=== PATIENT | female | born 1940 | race Caucasian/White ===

== ENCOUNTER → 2021-04-06 | Outpatient (CLI) | payer MEDICARE ==
--- NOTE | 2021-04-06 14:47 | Diagnostic Imaging Report ---
Indication: Low back pain. TIME OF EXAM: 2:31 PM 3 views lumbar spine show normal curvature and alignment. Vertebral body heights are maintained. No acute compression fracture seen. There is some generalized degenerative disc disease with variable disc space narrowing and marginal spurring. There is lower lumbar facet arthropathy. Atherosclerotic calcifications in the abdominal aorta are noted. IMPRESSION: Number spondylosis. No acute bony abnormality is detected. Dictated by: Dictated on workstation # [id number]
== END ==
LOC: RAD FS 14:20
PROVIDERS: ATTEND Family Medicine
DX: M47.26 Other spondylosis with radiculopathy, lumbar region (principal)
CPT/HCPCS: 72100

== ENCOUNTER → 2021-04-20 | Outpatient (CLI) | payer MEDICARE ==
--- NOTE | 2021-04-20 16:46 | Diagnostic Imaging Report ---
PROCEDURE: MRI lumbar spine. TECHNIQUE: Multiplanar, multisequence MRI of the lumbar spine was performed without contrast. INDICATION: Back pain with radiculopathy. FINDINGS: There is minimal anterolisthesis of L5 on S1. The alignment of the lumbosacral spine is normal. Body heights are well maintained. Marrow signal is normal. The conus medullaris and cauda equina are normal. L1-L2: Disc shows normal contour. No facet or ligamentous hypertrophy. L2-L3: Desiccation of the disc with some loss of disc space height. There is broad-based disc protrusion with facet and ligamentous hypertrophy causing moderate encroachment upon the foramen bilaterally. No central canal stenosis. L3-L4: There is broad-based disc bulge with moderate facet and ligamentous hypertrophy causing moderate bilateral foraminal encroachment without central stenosis. L4-L5: There is desiccation of the disc with minimal disc bulge. There is considerable facet and ligamentous hypertrophy causing moderate trefoil stenosis and encroachment upon the lateral recesses. The residual AP central canal dimension is approximately 6 mm. L5-S1: Minimal anterolisthesis of L5 on S1 with very mild disc bulge. Mild facet and ligamentous hypertrophy causing mild foraminal encroachment bilaterally without central canal stenosis. The paraspinal soft tissues appear normal. IMPRESSION: 1. Multilevel degenerative disc and facet disease causing [id number] encroachment as described above. Dictated by: Dictated on workstation # [id number]
== END ==
LOC: RAD 13:15
PROVIDERS: ATTEND Family Medicine
DX: M47.26 Other spondylosis with radiculopathy, lumbar region (principal); M47.817 Spondylosis without myelopathy or radiculopathy, lumbosacral region; M51.16 Intervertebral disc disorders with radiculopathy, lumbar region; M51.27 Other intervertebral disc displacement, lumbosacral region; M48.061 Spinal stenosis, lumbar region without neurogenic claudication; M48.07 Spinal stenosis, lumbosacral region; M43.17 Spondylolisthesis, lumbosacral region
CPT/HCPCS: 72148

== ENCOUNTER 2022-06-29 15:23 | Observation (INO) | payer MEDICARE ==
[~2022-06-29] VITALS: Ht 160 cm; Wt 73.0 kg
[2022-06-29] VITALS (8 sets, daily range): BP systolic 134–159; BP diastolic 59–90
--- NOTE | 2022-06-29 15:32 | ED Neurological Problem ---
General Stated Complaint: VISION DISTURBANCE/RIGHT HAND WEAKNESS History of Present Illness Date Seen by Provider: Jun 29, 2022 Time Seen by Provider: 15:31 Initial Comments 75-year-old female with PMH of DM 2/HTN/chronic UTIs/urinary incontinence, is here with complaints of right upper extremity weakness which occurred earlier today. Patient's symptoms have resolved since then but she is not feeling well. Patient cannot explain how she feels except to say that she does not feel well and has been having shortness of breath which is worsened on exertion, and worsening over the past week and a half. Patient noticed that she had urinary retention today. Patient also complains that she has had left upper extremity weakness for the past week and a half, and it is not a result of any injuries or falls. Denies headache, blurry vision, chest pain, palpitations, abdominal pain, fever and chills. Allergies and Home Medications Allergies Coded Allergies: No Known Drug Allergies (Unverified , 06/29/22) Patient Home Medication List Home Medication List Reviewed: Yes Review of Systems Review of Systems Constitutional: no symptoms reported Eyes: No Symptoms Reported Ears, Nose, Mouth, Throat: no symptoms reported Respiratory: no symptoms reported Cardiovascular: no symptoms reported Gastrointestinal: no symptoms reported Genitourinary: see HPI Musculoskeletal: no symptoms reported Skin: no symptoms reported Psychiatric/Neurological: See HPI, Numbness, Weakness Endocrine: No Symptoms Reported Hematologic/Lymphatic: No Symptoms Reported Physical Exam Vital Signs Vital Signs - First Documented 06/29/22 15:30 Temp 36.5 Pulse 93 Resp 21 B/P (MAP) 200/90 (126) Pulse Ox 96 O2 Delivery Room Air Capillary Refill : Height, Weight, BMI Height: '" Weight: lbs. oz. kg; BMI Method: General Appearance: WD/WN, no apparent distress HEENT: PERRL/EOMI Neck: non-tender, full range of motion, supple, normal inspection Respiratory: lungs clear, normal breath sounds Cardiovascular: regular rate, rhythm, no edema Gastrointestinal: normal bowel sounds, non tender, soft Back: normal inspection, no CVA tenderness, no vertebral tenderness Extremities: normal range of motion, non-tender, normal inspection, no pedal edema, no calf tenderness Neurologic/Psychiatric: district engineer II-XII nml as tested, no motor/sensory deficits, alert, normal mood/affect, oriented x 3 Crainal Nerves: normal hearing, normal speech, PERRL Coordination/Gait: normal finger to nose, normal gait Motor/Sensory: no motor deficit, no sensory deficit, no pronator drift, negative Babinski's sign Reflexes: 4+ Bicep (R), 4+ Bicep (L), 4+ Tricep (L), 4+ Knee (R), 4+ Knee (L), 4+ Ankle (R), 4+ Ankle (L) Skin: normal color Lymphatic: no adenopathy Stroke NIH Stroke Scale Assessment Select: Initial Level of Consciousness: 0=Alert (0), Level of Consciousness-Questions: 0=Answers both month/age (0), LOC Commands: 0=Performs both tasks (0), Visual Paul: 0=No visual loss (0), Facial Movement (Facial Paresis): 0=Normal symmetrical mnt (0), Motor Function-Arms Right: 0=No drift (0), Motor Function-Arms Left: 0=No drift (0), Motor Function-Legs Right: 0=No drift (0), Motor Function-Legs Left: 0=No drift (0), Limb Ataxia: 0=Absent (0), Sensory: 0=Normal:no loss (0), Best Language: 0=No aphasia (0), Dysarthria: 0=Normal (0), Extinction & Inattention: 0=No abnormality (0), Total: 0 Focused Exam Lactate Level 06/29/22 15:50: Lactic Acid Level 0.93 Lactic Acid Level Laboratory Tests Test 06/29/22 15:50 Lactic Acid Level 0.93 MMOL/L (0.50-2.00) Progress/Results/Core Measures Results/Orders Lab Results Laboratory Tests Test 06/29/22 15:35 06/29/22 15:36 06/29/22 15:50 06/29/22 16:00 Range/Units White Blood Count 24.1 H 4.3-11.0 10^3/uL Red Blood Count 4.37 3.80-5.11 10^6/uL Hemoglobin 12.3 11.5-16.0 g/dL Hematocrit 37 35-52 % Mean Corpuscular Volume 86 80-99 fL Mean Corpuscular Hemoglobin 28 25-34 pg Mean Corpuscular Hemoglobin Concent 33 32-36 g/dL Red Cell Distribution Width 14.9 H 10.0-14.5 % Platelet Count 62 L 130-400 10^3/uL Mean Platelet Volume 10.3 9.0-12.2 fL Immature Granulocyte % (Auto) 2 % Neutrophils (%) (Auto) 5 L 42-75 % Lymphocytes (%) (Auto) 48 H 12-44 % Monocytes (%) (Auto) 44 H 0-12 % Eosinophils (%) (Auto) 0 0-10 % Basophils (%) (Auto) 0 0-10 % Neutrophils # (Auto) 1.3 L 1.8-7.8 10^3/uL Lymphocytes # (Auto) 11.6 H 1.0-4.0 10^3/uL Monocytes # (Auto) 10.7 H 0.0-1.0 10^3/uL Eosinophils # (Auto) 0.0 0.0-0.3 10^3/uL Basophils # (Auto) 0.1 0.0-0.1 10^3/uL Immature Granulocyte # (Auto) 0.5 H 0.0-0.1 10^3/uL Neutrophils % (Manual) 4 % Lymphocytes % (Manual) 70 % Monocytes % (Manual) 15 % Eosinophils % (Manual) 0 % Basophils % (Manual) 1 % Metamyelocytes % 1 % Band Neutrophils 1 % Nucleated Red Blood Cells 1 Atypical Lymphocytes 8 % Prothrombin Time 14.7 12.2-14.7 SEC INR Comment 1.1 0.8-1.4 Activated Partial Thromboplast Time 28 24-35 SEC D-Dimer > 20.00 H 0.00-0.49 UG/ML Sodium Level 141 135-145 MMOL/L Potassium Level 3.4 L 3.6-5.0 MMOL/L Chloride Level 102 98-107 MMOL/L Carbon Dioxide Level 23 21-32 MMOL/L Anion Gap 16 H 5-14 MMOL/L Blood Urea Nitrogen 24 H 7-18 MG/DL Creatinine 1.27 0.60-1.30 MG/DL Estimat Glomerular Filtration Rate 43 BUN/Creatinine Ratio 19 Glucose Level 152 H 70-105 MG/DL Calcium Level 9.5 8.5-10.1 MG/DL Corrected Calcium 9.1 8.5-10.1 MG/DL Magnesium Level 1.7 1.6-2.4 MG/DL Total Bilirubin 0.3 0.1-1.0 MG/DL Aspartate Amino Transf (AST/SGOT) 22 5-34 U/L Alanine Aminotransferase (ALT/SGPT) 12 0-55 U/L Alkaline Phosphatase 82 40-136 U/L Troponin I 0.72 *H <0.30 NG/ML Total Protein 7.8 6.4-8.2 GM/DL Albumin 4.5 3.2-4.5 GM/DL Glucometer 140 H 70-110 MG/DL Lactic Acid Level 0.93 0.50-2.00 MMOL/L Influenza Type A (RT-PCR) Not Detected Not Detecte Influenza Type B (RT-PCR) Not Detected Not Detecte SARS-CoV-2 RNA (RT-PCR) Not Detected Not Detecte Test 06/29/22 17:05 06/29/22 17:55 Range/Units Urine Color YELLOW Urine Clarity SL CLOUDY Urine pH 5.5 5-9 Urine Specific Grabill 1.010 L 1.016-1.022 Urine Protein 1+ H NEGATIVE Urine Glucose (UA) NEGATIVE NEGATIVE Urine Ketones NEGATIVE NEGATIVE Urine Nitrite POSITIVE H NEGATIVE Urine Bilirubin NEGATIVE NEGATIVE Urine Urobilinogen 0.2 < = 1.0 MG/DL Urine Leukocyte Esterase TRACE H NEGATIVE Urine RBC (Auto) 1+ H NEGATIVE Urine RBC NONE /HPF Urine WBC 2-5 /HPF Urine Squamous Epithelial Cells 5-10 /HPF Urine Crystals NONE /LPF Urine Bacteria MODERATE H /HPF Urine Casts NONE /LPF Urine Mucus NEGATIVE /LPF Urine Culture Indicated YES Troponin I 1.04 *H <0.30 NG/ML My Orders Orders - ALENA PEÑA MD Ct Head Wo-R/O Stroke (06/29/22 15:32) Chest 1 View Ap/Pa Only (06/29/22 15:33) Cbc With Automated Diff (06/29/22 15:40) Comprehensive Metabolic Panel (06/29/22 15:40) Fibrin Degradation Products (06/29/22 15:40) Lactic Acid Analyzer (06/29/22 15:40) Magnesium (06/29/22 15:40) Protime With Inr (06/29/22 15:40) Partial Thromboplastin Time (06/29/22 15:40) Ua Culture If Indicated (06/29/22 15:40) Troponin I Fs (06/29/22 15:40) Covid 19 Inhouse Test (06/29/22 15:42) Influenza A And B By Pcr (06/29/22 15:42) Manual Differential (06/29/22 15:35) Continuous Ekg Monitoring (06/29/22 16:12) Ekg Tracing (06/29/22 16:12) Ct Angio Head/Neck (06/29/22 16:13) Iohexol Injection (Omnipaque 350 Mg/Ml 1 (06/29/22 16:45) Received Contrast (Hold Metformin- Contr (06/29/22 16:45) Ns (Ivpb) (Sodium Chloride 0.9% Ivpb Bag (06/29/22 16:45) Ct Angio Chest W (06/29/22 17:04) Troponin I Fs (06/29/22 17:05) Ekg Tracing (06/29/22 17:05) Iohexol Injection (Omnipaque 350 Mg/Ml 1 (06/29/22 17:15) Received Contrast (Hold Metformin- Contr (06/29/22 17:15) Ns (Ivpb) (Sodium Chloride 0.9% Ivpb Bag (06/29/22 17:15) Ed Iv/Invasive Line Start (06/29/22 17:22) Ns Iv 1000 Ml (Sodium Chloride 0.9%) (06/29/22 17:30) Urine Culture (06/29/22 17:05) Ceftriaxone 1 Gm Pre-Mix (Rocephin 1 Gm (06/29/22 17:34) Heparin (Bolus Per Protocol) (Heparin (B (06/29/22 18:15) Enoxaparin Injection (Lovenox Injection) (06/29/22 18:12) Medications Given in ED Current Medications Medications Dose Ordered Sig/Lily Route Start Time Stop Time Status Last Admin Dose Admin Iohexol 100 ml ONCE ONCE IV 06/29/22 16:45 06/29/22 16:46 DC 06/29/22 16:53 75 ML Iohexol 100 ml ONCE ONCE IV 06/29/22 17:15 06/29/22 17:32 DC 06/29/22 17:42 80 ML Sodium Chloride 100 ml ONCE ONCE IV 06/29/22 16:45 06/29/22 16:46 DC 06/29/22 16:53 100 ML Sodium Chloride 100 ml ONCE ONCE IV 06/29/22 17:15 2/28/23 17:32 DC 06/29/22 17:41 100 ML Vital Signs/I&O 06/29/22 15:30 Temp 36.5 Pulse 93 Resp 21 B/P (MAP) 200/90 (126) Pulse Ox 96 O2 Delivery Room Air Progress Progress Note : Progress Note 1. STROKE RULE OUT: - CT HEAD: no acute findings - CTA HEAD & NECK: No acute findings - Labs: see chart and note -Symptoms likely due to UTI 2. BILATERAL PULMONARY EMBOLISM - Troponin: 0.72, 2nd tropis 1.04; likely due to PE and demand ischemia. Pt did not have chest pain at any time. - EKG x2: non-ischemic - Platelet count is 62, pt is not on any blood thinners at home - D-dimer: >20 - CTA CHEST: Bilateral pulmonary embolism -Patient's vitals are stable in the ER and she is satting at 97% on room air without any need for oxygen. -Discussed with hospitalist, Dr. Saleem, and accepted for observation admission to cardiac stepdown. Discussed anticoagulation and since platelet count is 62, will start patient on treatment dose of Lovenox 3. ACUTE CYSTITIS WITH HEMATURIA : - UA is positive for nitrites and leukocyte esterase and RBCs -WBC is elevated at 24 - Lactic Acid level was normal indicating normal tissue perfusion. -Ceftriaxone 1 g IV stat Initial ECG Impression Date: Jun 29, 2022 Initial ECG Impression Time: 16:15 Initial ECG Rate: 86 Initial ECG Rhythm: Normal Sinus Initial ECG Intervals: Normal Initial ECG Impression: Nonspecific Changes Diagnostic Imaging Diagonstic Imaging: CT Plain Films/CT/US/NM/MRI: chest, head Comments [facility], [place] NAME: KATIE CRUZ [facility] REC#: [id number] PT STATUS: REG ER : 1940 PHYSICIAN: ALENA PEÑA MD ADMIT DATE: 06/29/22/ER FS Draft Date of Exam:06/29/22 CT ANGIO HEAD/NECK PROCEDURE: CT angiography of the head and CT angiography of the neck with and without contrast. TECHNIQUE: Contiguous noncontrast images were obtained from the skull base through the vertex. After intravenous contrast administration, helical CT angiography of the neck was performed. Source data was reformatted into 3D MIP projections. Delayed post contrast acquisition was also obtained. Auto Exposure Controls were utilized during the CT exam to meet ALARA standards for radiation dose reduction. INDICATION: Right-sided weakness. CTA NECK: There is a three-vessel branching pattern to the aortic arch. The right and left common carotid arteries are widely patent. No focal stenosis is identified. Both carotid bifurcations are unremarkable and show no focal stenosis. The right and left internal carotid arteries appear to be widely patent. There is some calcified plaque at the carotid siphons bilaterally. The left vertebral artery is dominant. Both vertebral arteries are widely patent. CTA HEAD: The basilar artery is widely patent. The right posterior cerebral artery is hypoplastic consistent with origin. The right posterior communicating artery feeds the right ADVANCED MANUFACTURING TECHNICIAN. The left ADVANCED MANUFACTURING TECHNICIAN is widely patent. The right and left anterior cerebral arteries are widely patent. The M1 and M2 branches of the right and left middle cervical arteries appear to be widely patent. No thromboembolism is identified. No large vessel occlusion is detected. Note is made of multiple low-attenuation nodules throughout both lobes of the thyroid gland. IMPRESSION: 1. Essentially unremarkable CT angiogram of the head and neck. No thromboembolism or large vessel occlusion is identified. 2. Bilateral thyroid nodules. This could be evaluated with ultrasound on a nonemergent basis if not already performed. Dictated on workstation # [id number] Dict: 06/29/225 Trans: 06/29/221714 [facility] [id number] Interpreted by: JONNIE PAULA MD Electronically signed by: [facility] [place] NAME: KATIE CRUZ [facility] REC#: [id number] PT STATUS: REG ER : 1940 PHYSICIAN: ALENA PEÑA MD ADMIT DATE: 06/29/22/ER FS Draft Date of Exam:06/29/22 CT ANGIO CHEST W PROCEDURE: CT angiography of the chest with contrast. TECHNIQUE: Multiple contiguous axial images were obtained through the chest after uneventful bolus administration of intravenous contrast. 3D reconstructed CTA MIP acquisitions were also performed. Auto Exposure Controls were utilized during the CT exam to meet ALARA standards for radiation dose reduction. INDICATION: Elevated D-dimer. No prior studies are available for comparison. FINDINGS: Findings are positive for pulmonary emboli. There are some filling defects involving a right upper lobe lobar pulmonary arterial branch as well as right lower lobe lobar and segmental branches. There is a tiny filling defect in a left lower lobe segmental branch. Upper lobes are unremarkable. Overall clot burden is very small. No definite findings of right heart failure are detected. Thoracic aorta is normal in caliber. There is no dissection. There is no pericardial or pleural fluid identified. Lungs appear to be clear. No infiltrates are seen. There is no nodule or mass. The upper abdomen does show low-attenuation within the right lobe of the liver, suggestive of a cyst. IMPRESSION: 1. Findings consistent with bilateral pulmonary emboli. Overall clot burden is very small. There is no evidence of right heart failure. Dictated on workstation # [id number] Dict: 06/29/22 173 Trans: 06/29/221745 [id number] Interpreted by: JONNIE PAULA MD Electronically signed by: [facility] [place] [place] NAME: KATIE CRUZ [facility] REC#: [id number] PT STATUS: REG ER : 1940 PHYSICIAN: ALENA PEÑA MD ADMIT DATE: 06/29/22/ER FS Signed Date of Exam:06/29/22 CHEST 1 VIEW AP/PA ONLY INDICATION: Right upper extremity weakness COMPARISON: None available. TECHNIQUE: Single radiograph of the chest dated 06/23/2022. FINDINGS: The cardiac silhouette is within normal limits in size. No significant pulmonary vascular congestion. Senescent changes of the lungs without focal pulmonary opacity. No significant pleural effusion. No pneumothorax. No acute osseous abnormality. IMPRESSION: Senescent changes of the lungs without superimposed acute cardiopulmonary abnormality. Dictated by: Dictated on workstation # [id number] Dict: 06/29/22 1620 Trans: 06/29/221742 [facility] [id number] Interpreted by: DEREK AMAYA MD Electronically signed by: DEREK AMAYA MD 06/29/221742 [facility] [place] [place] NAME: KATIE CRUZ [facility] REC#: [id number] PT STATUS: REG ER : 1940 PHYSICIAN: ALENA PEÑA MD ADMIT DATE: 06/29/22/ER FS Draft Date of Exam:06/29/22 CT HEAD WO-R/O STROKE PROCEDURE: CT head wo r/o stroke. TECHNIQUE: Multiple contiguous axial images were obtained through the brain without the use of intravenous contrast. Auto Exposure Controls were utilized during the CT exam to meet ALARA standards for radiation dose reduction. INDICATION: Blurred vision and weakness. COMPARISON: No prior studies are available for comparison. FINDINGS: Ventricles and sulci are within normal limits. No sulcal effacement or midline shift is identified. No acute intra-axial or extra-axial hemorrhage is detected. Cisterns are patent. Visualized paranasal sinuses are clear. IMPRESSION: No acute intracranial process is detected. Results were discussed with Dr. Peña at 04:03 p.m. Dictated on workstation # [id number] Dict: 06/29/22 1601 Trans: 06/29/22 1605 [id number] [id number] Interpreted by: JONNIE PAULA MD Electronically signed by: Departure Communication (Admissions) Time/Spoke to Admitting Phy: 18:20 Discussed with hospitalist and accepted for admission to stepdown unit for observation Impression Primary Impression: Bilateral pulmonary embolism Additional Impression: Acute cystitis with hematuria Disposition: 30 STILL A PATIENT Condition: Stable Admissions Decision to Admit Reason: Admit from ER (General) Decision to Admit/Date: Jun 29, 2022 Time/Decision to Admit Time: 18:00 Transfer Method of Transfer: EMS Departure-Patient Inst. Referrals: BAILEY CONKLIN MD (PCP/Family) Primary Care Physician ALENA PEÑA MD Jun 29, 2022 15:32
[2022-06-29 15:46] LABS: BASOPHILS # (AUTO) 0.1 10^3/uL (0.0-0.1); BASOPHILS % (AUTO) 0 % (0-10); EOSINOPHILS % (AUTO) 0 % (0-10); HEMATOCRIT 37 % (35-52); HEMOGLOBIN 12.3 g/dL (11.5-16.0); LYMPHOCYTES # (AUTO) 11.6 10^3/uL (1.0-4.0); LYMPHOCYTES % (AUTO) 48 % (12-44); MEAN CORPUSCULAR HEMOGLOBIN 28 pg (25-34); MEAN CORPUSCULAR HGB CONC 33 g/dL (32-36); MEAN CORPUSCULAR VOLUME 86 fL (80-99); MEAN PLATELET VOLUME 10.3 fL (9.0-12.2); MONOCYTES # (AUTO) 10.7 10^3/uL (0.0-1.0); MONOCYTES % (AUTO) 44 % (0-12); NEUTROPHILS # (AUTO) 1.3 10^3/uL (1.8-7.8); NEUTROPHILS % (AUTO) 5 % (42-75); PLATELET COUNT 62 10^3/uL (130-400); WHITE BLOOD COUNT 24.1 10^3/uL (4.3-11.0)
--- NOTE | 2022-06-29 16:05 | Diagnostic Imaging Report ---
PROCEDURE: CT head wo r/o stroke. TECHNIQUE: Multiple contiguous axial images were obtained through the brain without the use of intravenous contrast. Auto Exposure Controls were utilized during the CT exam to meet ALARA standards for radiation dose reduction. INDICATION: Blurred vision and weakness. COMPARISON: No prior studies are available for comparison. FINDINGS: Ventricles and sulci are within normal limits. No sulcal effacement or midline shift is identified. No acute intra-axial or extra-axial hemorrhage is detected. Cisterns are patent. Visualized paranasal sinuses are clear. IMPRESSION: No acute intracranial process is detected. Results were discussed with Dr. Peña at 04:03 p.m. Dictated by: Dictated on workstation # [id number]
[2022-06-29 16:10] LABS: BILIRUBIN,TOTAL 0.3 MG/DL (0.1-1.0); CALCIUM 9.5 MG/DL (8.5-10.1); CREATININE SERUM 1.27 MG/DL (0.60-1.30); MAGNESIUM 1.7 MG/DL (1.6-2.4); POTASSIUM 3.4 MMOL/L (3.6-5.0)
[2022-06-29 16:12] LABS: ALBUMIN 4.5 GM/DL (3.2-4.5); TOTAL PROTEIN 7.8 GM/DL (6.4-8.2)
[2022-06-29 16:22] LABS: BAND NEUTROPHILS 1 %; BASOPHILS % (MANUAL) 1 %; EOSINOPHILS % (MANUAL) 0 %; LYMPHOCYTES % (MANUAL) 70 %; MONOCYTES % (MANUAL) 15 %; NEUTROPHILS % (MANUAL) 4 %
[2022-06-29 16:23] LABS: ATYPICAL LYMPHOCYTES 8 %; METAMYELOCYTES % 1 %; NUCLEATED RED BLOOD CELLS 1
--- NOTE | 2022-06-29 16:23 | Diagnostic Imaging Report ---
INDICATION: Right upper extremity weakness COMPARISON: None available. TECHNIQUE: Single radiograph of the chest dated 06/23/2022. FINDINGS: The cardiac silhouette is within normal limits in size. No significant pulmonary vascular congestion. Senescent changes of the lungs without focal pulmonary opacity. No significant pleural effusion. No pneumothorax. No acute osseous abnormality. IMPRESSION: Senescent changes of the lungs without superimposed acute cardiopulmonary abnormality. Dictated by: Dictated on workstation # [id number]
[2022-06-29 16:38] LABS: FIBRIN DEGRADATION PRODUCTS > 20.00 UG/ML (0.00-0.49); INR 1.1 (0.8-1.4); PARTIAL THROMBOPLASTIN TIME 28 SEC (24-35); PROTHROMBIN TIME PATIENT 14.7 SEC (12.2-14.7)
[2022-06-29] MEDS ORDERED: HOLD METFORMIN - RECEIVED CONTRAST 20 ML VIAL IV SCH ×2 (16:45→17:15)
[2022-06-29] MEDS ORDERED: NS 100 ML (IVPB) BAG IV ONE ×2 (16:45→17:15)
[2022-06-29] MEDS ORDERED: IOHEXOL 350 MG/ML 100 ML (OMNIPAQUE 350) VIAL IV ONE ×2 (16:45→17:15)
[2022-06-29 17:15] LABS: BILIRUBIN,URINE NEGATIVE (NEGATIVE); CLARITY,URINE SL CLOUDY; COLOR,URINE YELLOW; GLUCOSE, URINE (UA) NEGATIVE (NEGATIVE); KETONES,URINE NEGATIVE (NEGATIVE); LEUKOCYTE ESTERASE ,URINE TRACE (NEGATIVE); NITRITE,URINE POSITIVE (NEGATIVE); PH,URINE 5.5 (5-9); PROTEIN,URINE 1+ (NEGATIVE)
--- NOTE | 2022-06-29 17:16 | Diagnostic Imaging Report ---
PROCEDURE: CT angiography of the head and CT angiography of the neck with and without contrast. TECHNIQUE: Contiguous noncontrast images were obtained from the skull base through the vertex. After intravenous contrast administration, helical CT angiography of the neck was performed. Source data was reformatted into 3D MIP projections. Delayed post contrast acquisition was also obtained. Auto Exposure Controls were utilized during the CT exam to meet ALARA standards for radiation dose reduction. INDICATION: Right-sided weakness. CTA NECK: There is a three-vessel branching pattern to the aortic arch. The right and left common carotid arteries are widely patent. No focal stenosis is identified. Both carotid bifurcations are unremarkable and show no focal stenosis. The right and left internal carotid arteries appear to be widely patent. There is some calcified plaque at the carotid siphons bilaterally. The left vertebral artery is dominant. Both vertebral arteries are widely patent. CTA HEAD: The basilar artery is widely patent. The right posterior cerebral artery is hypoplastic consistent with origin. The right posterior communicating artery feeds the right GAS WELL PUMPER. The left GAS WELL PUMPER is widely patent. The right and left anterior cerebral arteries are widely patent. The M1 and M2 branches of the right and left middle cervical arteries appear to be widely patent. No thromboembolism is identified. No large vessel occlusion is detected. Note is made of multiple low-attenuation nodules throughout both lobes of the thyroid gland. IMPRESSION: 1. Essentially unremarkable CT angiogram of the head and neck. No thromboembolism or large vessel occlusion is identified. 2. Bilateral thyroid nodules. This could be evaluated with ultrasound on a nonemergent basis if not already performed. Dictated by: Dictated on workstation # [id number]
[2022-06-29 17:23] LABS: BACTERIA,URINE MODERATE /HPF
[2022-06-29] MEDS ORDERED: NS IV 1000 ML 1,000 ML IV SCH (17:30)
[2022-06-29] MEDS ORDERED: cefTRIAXone 1 GM PRE-MIX 50 ML IV STA (17:34)
--- NOTE | 2022-06-29 17:46 | Diagnostic Imaging Report ---
PROCEDURE: CT angiography of the chest with contrast. TECHNIQUE: Multiple contiguous axial images were obtained through the chest after uneventful bolus administration of intravenous contrast. 3D reconstructed CTA MIP acquisitions were also performed. Auto Exposure Controls were utilized during the CT exam to meet ALARA standards for radiation dose reduction. INDICATION: Elevated D-dimer. No prior studies are available for comparison. FINDINGS: Findings are positive for pulmonary emboli. There are some filling defects involving a right upper lobe lobar pulmonary arterial branch as well as right lower lobe lobar and segmental branches. There is a tiny filling defect in a left lower lobe segmental branch. Upper lobes are unremarkable. Overall clot burden is very small. No definite findings of right heart failure are detected. Thoracic aorta is normal in caliber. There is no dissection. There is no pericardial or pleural fluid identified. Lungs appear to be clear. No infiltrates are seen. There is no nodule or mass. The upper abdomen does show low-attenuation within the right lobe of the liver, suggestive of a cyst. IMPRESSION: 1. Findings consistent with bilateral pulmonary emboli. Overall clot burden is very small. There is no evidence of right heart failure. Dictated by: Dictated on workstation # [id number]
[2022-06-29] MEDS ORDERED: ENOXAPARIN 100 MG/1 ML (LOVENOX) SYR SC STA (18:12)
[2022-06-29] MEDS ORDERED: HEParin 1000 UNIT/ML (10ML VIAL) FOR BOLUS IV SCH (18:15)
[2022-06-29] MEDS ORDERED: ASPIRIN 325 MG (5 GR) TABLET PO ONE (20:45)
[2022-06-29] MEDS ORDERED: MELATONIN 3 MG TABLET PO PRN (22:00)
[2022-06-29] MEDS ORDERED: ACETAMINOPHEN 325 MG TABLET PO PRN (22:00)
[2022-06-29] MEDS: CATHETER FLUSH 10 ML SYR IVP SCH (22:41)
[2022-06-30] VITALS (7 sets, daily range): BP systolic 141–161; BP diastolic 72–89
[2022-06-30 04:54] LABS: BASOPHILS # (AUTO) 0.1 10^3/uL (0.0-0.1); BASOPHILS % (AUTO) 0 % (0-10); EOSINOPHILS % (AUTO) 0 % (0-10); HEMATOCRIT 36 % (35-52); HEMOGLOBIN 11.8 g/dL (11.5-16.0); MEAN CORPUSCULAR HEMOGLOBIN 28 pg (25-34); MEAN CORPUSCULAR HGB CONC 33 g/dL (32-36); MEAN CORPUSCULAR VOLUME 86 fL (80-99); MEAN PLATELET VOLUME 9.5 fL (9.0-12.2)
[2022-06-30 04:56] LABS: LYMPHOCYTES # (AUTO) 6.6 10^3/uL (1.0-4.0); LYMPHOCYTES % (AUTO) 31 % (12-44); MONOCYTES # (AUTO) 12.4 10^3/uL (0.0-1.0); MONOCYTES % (AUTO) 58 % (0-12); NEUTROPHILS # (AUTO) 1.8 10^3/uL (1.8-7.8); NEUTROPHILS % (AUTO) 8 % (42-75); PLATELET COUNT 58 10^3/uL (130-400); WHITE BLOOD COUNT 21.3 10^3/uL (4.3-11.0)
[2022-06-30 05:05] LABS: INR 1.2 (0.8-1.4); PROTHROMBIN TIME PATIENT 15.9 SEC (12.2-14.7)
[2022-06-30 05:09] LABS: CALCIUM 8.8 MG/DL (8.5-10.1); CREATININE SERUM 0.77 MG/DL (0.60-1.30); POTASSIUM 3.1 MMOL/L (3.6-5.0)
[2022-06-30] MEDS: CATHETER FLUSH 10 ML SYR IVP SCH ×3 (06:00→22:02)
[2022-06-30] MEDS: POTASSIUM CL 10MEQ/50ML IVPB 50 ML IV SCH ×3 (08:45→10:54)
[2022-06-30] MEDS: ASPIRIN 325 MG (5 GR) TABLET PO SCH (08:45)
--- NOTE | 2022-06-30 08:46 | Consultation-Cardiology ---
HPI-Cardiology Cardiology Consultation: Date of Consultation 06/30/22 Time Seen by a Provider: 08:10 Date of Admission 06-29-22 Attending Physician Aman Stubbs MD Admitting Physician Admitting Physician: Cheyanne Saleem MD Attending Physician: Cheyanne Saleem MD Consulting Physician Jason Johnson MD HPI: Chief Complaint: Elevated troponin PE Ms. Cruz is an 82 yr old female who has been admitted to [facility] from [facility] with bilat PE. She reports on Tuesday of last week she had taken her to [place] for pulmonary rehab and once they arrived home she felt nauseated and as though she would pass out. She went and laid down and symptoms resolved after resting. No further c/o nausea. No c/o vomiting or diarrhea. She reports she did have some pressure in her chest which she describes as mild. She states it did not change with activity and has been constant since Tuesday. She reports on Tuesday morning she went to religion and when she got home she felt generally unwell; reporting weakness, fatigue, gen malaise. She reports she went to bed and rested for a few hours, got up and tried to do a few things. She states she continued to feel generally unwell and fatigued so she went back to bed. She wo ke up Tuesday morning still feeling weak and fatigued, she reports she slept most of the day. She denies any SOB or palpitations. She reports on Tuesday she got up and went to have her routing mammogram. She states she went to [facility] and when she returned home she again felt weak. She reports dizziness. She states around 1300 yesterday she would try to reach for the counter top or an object and was "missing" the object knocking things over at home. She reports that is when she came to the ED. No report of LE swelling. No c/o any falls. She reports the pressure in her chest has eased up to slight heaviness. She reports she has sleep apnea, but d/t freq urination during the night she is not able to use her CPAP. No report of syncope. No fever or chills. Review of Systems-Cardiology Review of Systems Constitutional: As described under HPI; No chills, No fever Eyes: As described under HPI Ears/Nose/Throat: No epistaxis, No recent hearing loss Respiratory: As described under HPI Cardiovascular: As described under HPI Gastrointestinal: As described under HPI Genitourinary: No dysuria; hematuria (reports chronic - follows with urology) Musculoskeletal: no symptoms reported Skin: No rash on exposed areas, No ulcerations on exposed areas Psychiatric/Neurological: No anxiety, No depression, No seizure, No focal weakness, No syncope Hematologic: No bleeding abnormalities JPW-[id number]-Dhrhgg Hx Patient Social History Smoking Status: Never a Smoker Have you traveled recently?: No Alcohol Use?: No Pt feels they are or have been: No Immunizations Up To Date Date of Influenza Vaccine: Feb 13, 2022 Past Medical History PMH As described under Assessment. Family Medical History Family Medical History: She reports her mother had breast cancer. She reports her grand-mother had "heart trouble" No reported family h/o CVA Allergies and Home Medications Allergies Coded Allergies: No Known Drug Allergies (Unverified , 06/29/22) Patient Home Medication List Aspirin (Aspirin EC) 81 Mg Tablet.dr, 81 MG PO HS, (Reported) Entered as Reported by: FERNANDA MAGUIRE on 06/30/221227 Last Action: Reviewed Atorvastatin Calcium (Atorvastatin Calcium) 20 Mg Tablet, 10 MG PO HS, (Reported) Entered as Reported by: FERNANDA MAGUIRE on 06/30/221227 Last Action: Continued Carvedilol (Carvedilol) 6.25 Mg Tablet, 6.25 MG PO BID, (Reported) Entered as Reported by: FERNANDA MAGUIRE on 06/30/221227 Last Action: Reviewed Cholecalciferol (Vitamin D3) (Vitamin D3) 125 Mcg (5000 Unit) Capsule, 125 MCG PO DAILY, (Reported) Entered as Reported by: FERNANDA MAGUIRE on 06/30/221227 Last Action: Reviewed Cranberry Extract (Cranberry) 250 Mg Capsule, 250 MG PO DAILY, (Reported) Entered as Reported by: FERNANDA MAGUIRE on 06/30/221227 Last Action: Reviewed Dutasteride (Dutasteride) 0.5 Mg Capsule, 0.5 MG PO DAILY, (Reported) Entered as Reported by: FERNANDA MAGUIRE on 06/30/221227 Last Action: Converted Fenofibrate Nanocrystallized (Fenofibrate) 145 Mg Tablet, 145 MG PO DAILY, (Reported) Entered as Reported by: FERNANDA MAGUIRE on 06/30/221227 Last Action: Converted Metformin HCl (Metformin HCl ER) 750 Mg Tab.er.24h, 750 MG PO BID WITH MEALS, (Reported) Entered as Reported by: FERNANDA MAGUIRE on 06/30/221227 Last Action: Held Methenamine Hippurate (Methenamine Hippurate) 1 Gram Tablet, 1 GM PO BID, (Reported) Entered as Reported by: FERNANDA MAGUIRE on 06/30/221227 Last Action: Continued Minoxidil (Minoxidil) 2.5 Mg Tablet, 2.5 MG PO DAILY, (Reported) Entered as Reported by: FERNANDA MAGUIRE on 06/30/221227 Last Action: Converted Trandolapril (Trandolapril) 4 Mg Tablet, 4 MG PO DAILY, (Reported) Entered as Reported by: FERNANDA MAGUIRE on 06/30/221227 Last Action: Converted Verapamil HCl (Verapamil Sr) 240 Mg Cap24h.pel, 240 MG PO DAILY, (Reported) Entered as Reported by: FERNANDA MAGUIRE on 06/30/221227 Last Action: Reviewed Discontinued Medications Aspirin (Aspirin) 81 Mg Tab.chew, 81 MG PO DAILY Discontinued Reason: Duplicate Order Prescribed by: MAYRA STEINER on 06/30/221123 Last Action: Discontinued Atorvastatin Calcium (Atorvastatin Calcium) 20 Mg Tablet, 10 MG PO DAILY Discontinued Reason: Duplicate Order Prescribed by: MAYRA STEINER on 06/30/221123 Last Action: Discontinued Carvedilol (Coreg) 6.25 Mg Tablet, 6.25 MG PO BID Discontinued Reason: Duplicate Order Prescribed by: MAYRA STEINER on 06/30/221108 Last Action: Discontinued Cholecalciferol (Vitamin D3) (Vitamin D3) 125 Mcg (5000 Unit) Capsule, 125 MCG PO DAILY Discontinued Reason: Duplicate Order Prescribed by: MAYRA STEINER on 06/30/221123 Last Action: Discontinued Cranberry Extract/Vit C (Azo Cranberry Softgel) 250 Mg-60 Mg Capsule, 1 EACH PO DAILY Discontinued Reason: Duplicate Order Prescribed by: MAYRA STEINER on 06/30/221123 Last Action: Discontinued Dutasteride (Dutasteride) 0.5 Mg Capsule, 0.5 MG PO DAILY Discontinued Reason: Duplicate Order Prescribed by: MAYRA STEINER on 06/30/221123 Last Action: Discontinued Fenofibrate Nanocrystallized (Fenofibrate) 145 Mg Tablet, 145 MG PO DAILY Discontinued Reason: Duplicate Order Prescribed by: MAYRA STEINER on 06/30/221123 Last Action: Discontinued Metformin HCl (Metformin HCl ER) 750 Mg Tab.er.24h, 750 MG PO BID Discontinued Reason: Duplicate Order Prescribed by: MAYRA STEINER on 06/30/221123 Last Action: Discontinued Methenamine Hippurate (Methenamine Hippurate) 1 Gram Tablet, 1 GM PO BID Discontinued Reason: Duplicate Order Prescribed by: MAYRA STEINER on 06/30/221123 Last Action: Discontinued Minoxidil (Minoxidil) 2.5 Mg Tablet, 2.5 MG PO DAILY Discontinued Reason: Duplicate Order Prescribed by: MAYRA STEINER on 06/30/221123 Last Action: Discontinued Trandolapril (Trandolapril) 4 Mg Tablet, 4 MG PO DAILY Discontinued Reason: Duplicate Order Prescribed by: MAYRA STEINER on 06/30/221123 Last Action: Discontinued Verapamil HCl (Verapamil Sr) 240 Mg Cap24h.pel, 240 MG PO DAILY Discontinued Reason: Duplicate Order Prescribed by: MAYRA STEINER on 06/30/221123 Last Action: Discontinued Physical Exam-Cardiology Physical Exam Vital Signs/I&O 06/30/22 07/01/22 07/01/22 07/01/22 23:39 00:00 00:34 01:00 Temp 36.3 Pulse 73 73 Resp 22 B/P (MAP) 142/93 (109) Pulse Ox 93 97 O2 Delivery Room Air Room Air 07/01/22 07/01/22 07/01/22 07/01/22 04:00 07:00 07:56 08:00 Temp 37.1 Pulse 74 74 77 Resp 21 18 B/P (MAP) 133/117 (122) 142/81 (101) Pulse Ox 92 96 96 O2 Delivery Room Air Room Air Room Air 07/01/22 00:00 Intake Total 550 ml Output Total 0 ml Balance 550 ml Capillary Refill : Less Than 3 Seconds Constitutional: AAO x 3, well-developed, well-nourished HEENT: PERRL, hearing is well preserved, oral hygience is good Neck: No carotid bruit; carotid pulses are 2 + bilaterally Respiratory: No accessory muscle use, No respiratory distress; chest expansion is symmetric, chest is bilaterally symmetric, lungs clear to auscultation Cardiovascular: regular rate-rhythm; No JVD; S1 and S2 Gastrointestinal: No tender; soft, round; No guarding; audible bowel sounds Extremities: no lower extremity edema bilateral Neurologic/Psychiatric: grossly intact (moves all extremities) Skin: normal color, warm/dry; No rash on exposed areas, No ulcerations on exposed areas Data Review Labs Laboratory Tests 06/30/22 21:51: Glucometer 164H 07/01/22 05:36: White Blood Count 25.9H, Red Blood Count 4.39, Hemoglobin 12.7, Hematocrit 37, Mean Corpuscular Volume 84, Mean Corpuscular Hemoglobin 29, Mean Corpuscular Hemoglobin Concent 34, Red Cell Distribution Width 14.8H, Platelet Count 50L, Mean Platelet Volume 10.1, Sodium Level 140, Potassium Level 3.5L, Chloride Level 105, Carbon Dioxide Level 20L, Anion Gap 15H, Blood Urea Nitrogen 12, Creatinine 0.79, Estimat Glomerular Filtration Rate 76, BUN/Creatinine Ratio 15, Glucose Level 156H, Calcium Level 8.7 Microbiology 06/29/22 Urine Culture - Preliminary, Resulted Gram Negative [facility] NAME: KATIE CRUZ [facility] REC#: [id number] PT STATUS: REG ER : 1940 PHYSICIAN: ALENA PEÑA MD ADMIT DATE: 06/29/22/ER FS Signed Date of Exam:06/29/22 CT HEAD WO-R/O STROKE PROCEDURE: CT head wo r/o stroke. TECHNIQUE: Multiple contiguous axial images were obtained through the brain without the use of intravenous contrast. Auto Exposure Controls were utilized during the CT exam to meet ALARA standards for radiation dose reduction. INDICATION: Blurred vision and weakness. COMPARISON: No prior studies are available for comparison. FINDINGS: Ventricles and sulci are within normal limits. No sulcal effacement or midline shift is identified. No acute intra-axial or extra-axial hemorrhage is detected. Cisterns are patent. Visualized paranasal sinuses are clear. IMPRESSION: No acute intracranial process is detected. Results were discussed with Dr. Peña at 04:03 p.m. Dictated by: Dictated on workstation # [id number] Dict: 06/29/22 1601 Trans: 06/29/22 1836 [id number] [id number] Interpreted by: JONNIE PAULA MD Electronically signed by: JONNIE PAULA MD 06/29/22 1836 NAME: KATIE CRUZ [facility] REC#: [id number] PT STATUS: REG ER : 1940 PHYSICIAN: ALENA PEAÑ MD ADMIT DATE: 06/29/22/ER FS Signed Date of Exam:06/29/22 CHEST 1 VIEW AP/PA ONLY INDICATION: Right upper extremity weakness COMPARISON: None available. TECHNIQUE: Single radiograph of the chest dated 06/23/2022. FINDINGS: The cardiac silhouette is within normal limits in size. No significant pulmonary vascular congestion. Senescent changes of the lungs without focal pulmonary opacity. No significant pleural effusion. No pneumothorax. No acute osseous abnormality. IMPRESSION: Senescent changes of the lungs without superimposed acute cardiopulmonary abnormality. Dictated by: Dictated on workstation # [id number] Dict: 06/29/22 1620 Trans: 06/29/22 174 [facility] [id number] Interpreted by: DEREK AMAYA MD Electronically signed by: DEREK AMAYA MD 06/29/22 174 NAME: KATIE CRUZ [facility] REC#: [id number] PT STATUS: REG ER : 1940 PHYSICIAN: ALENA PEÑA MD ADMIT DATE: 06/29/22/ER FS Signed Date of Exam:06/29/22 CT ANGIO HEAD/NECK PROCEDURE: CT angiography of the head and CT angiography of the neck with and without contrast. TECHNIQUE: Contiguous noncontrast images were obtained from the skull base through the vertex. After intravenous contrast administration, helical CT angiography of the neck was performed. Source data was reformatted into 3D MIP projections. Delayed post contrast acquisition was also obtained. Auto Exposure Controls were utilized during the CT exam to meet ALARA standards for radiation dose reduction. INDICATION: Right-sided weakness. CTA NECK: There is a three-vessel branching pattern to the aortic arch. The right and left common carotid arteries are widely patent. No focal stenosis is identified. Both carotid bifurcations are unremarkable and show no focal stenosis. The right and left internal carotid arteries appear to be widely patent. There is some calcified plaque at the carotid siphons bilaterally. The left vertebral artery is dominant. Both vertebral arteries are widely patent. CTA HEAD: The basilar artery is widely patent. The right posterior cerebral artery is hypoplastic consistent with origin. The right posterior communicating artery feeds the right DESIGN SUPERVISOR. The left DESIGN SUPERVISOR is widely patent. The right and left anterior cerebral arteries are widely patent. The M1 and M2 branches of the right and left middle cervical arteries appear to be widely patent. No thromboembolism is identified. No large vessel occlusion is detected. Note is made of multiple low-attenuation nodules throughout both lobes of the thyroid gland. IMPRESSION: 1. Essentially unremarkable CT angiogram of the head and neck. No thromboembolism or large vessel occlusion is identified. 2. Bilateral thyroid nodules. This could be evaluated with ultrasound on a nonemergent basis if not already performed. Dictated by: Dictated on workstation # [id number] Dict: 06/29/22 1705 Trans: 06/29/221835 AC [id number] Interpreted by: JONNIE PAULA MD Electronically signed by: JONNIE PAULA MD 06/29/221835 NAME: KATIE CRUZ [facility] REC#: [id number] PT STATUS: REG ER : 1940 PHYSICIAN: ALENA PEÑA MD ADMIT DATE: 06/29/22/ER FS Signed Date of Exam:06/29/22 CT ANGIO CHEST W PROCEDURE: CT angiography of the chest with contrast. TECHNIQUE: Multiple contiguous axial images were obtained through the chest after uneventful bolus administration of intravenous contrast. 3D reconstructed CTA MIP acquisitions were also performed. Auto Exposure Controls were utilized during the CT exam to meet ALARA standards for radiation dose reduction. INDICATION: Elevated D-dimer. No prior studies are available for comparison. FINDINGS: Findings are positive for pulmonary emboli. There are some filling defects involving a right upper lobe lobar pulmonary arterial branch as well as right lower lobe lobar and segmental branches. There is a tiny filling defect in a left lower lobe segmental branch. Upper lobes are unremarkable. Overall clot burden is very small. No definite findings of right heart failure are detected. Thoracic aorta is normal in caliber. There is no dissection. There is no pericardial or pleural fluid identified. Lungs appear to be clear. No infiltrates are seen. There is no nodule or mass. The upper abdomen does show low-attenuation within the right lobe of the liver, suggestive of a cyst. IMPRESSION: 1. Findings consistent with bilateral pulmonary emboli. Overall clot burden is very small. There is no evidence of right heart failure. Dictated by: Dictated on workstation # [id number] Dict: 06/29/22 1738 Trans: 06/29/226 [id number] Interpreted by: JONNIE PAULA MD Electronically signed by: JONNIE PAULA MD 06/29/221835 A/P-Cardiology Assessment/Admission Diagnosis NSTEMI vs Type 2 OK secondary to pulmonary embolism Bilat PE - CTA of the chesst on 06-29-22: Findings consistent with bilateral pulmonary emboli. Overall clot burden is very small. There is no evidence of right heart failure ?TIA - monitor on tele - consider ILR implant Leukocytosis - management per medical services Thrombocytopenia - undetermined etiology - advise consideration of hematology/oncology consult Thyroid nodules seen on CTA of the neck on 06-29-22 - advise f/u as an out pt NIRAJ - non-compliant with CPAP HTN - Coreg and Verapamil at home HLD - Lipitor at home - followed by her PCP DM 2 - management per medical services Discussion and Recomendations Bilat PE seen on CTA of the chest of 06-29-22 - complex management issue - she needs to be on anticoagulation d/t PE, however, she also has thrombocytopenia (new finding) - we advise OAC with Eliquis and consult with hematology/oncology services - advise echocardiogram to eval structure and function - Venous duplex today NSTEMI vs Type 2 OK d/t PE Leukocytosis - undetermined etiology - management per medical services HTN - continue home medications of Coreg and Verapamil NIRAJ - advise compliance with CPAP HLD - advis continuation of home dose of Lipitor Thyroid nodules seen on CTA of the neck - management per medical services ?TIA - continue telemetry to monitor for arrhythmia - may need to consider ILR placement as out pt Monitor lab closely Replace electrolytes as indicated Further recs will be based on her hospital course We have spoken with Dr. Saleem of medical services We would like to thank her for this consult AURY GUARDADO Jun 30, 2022 08:46
[2022-06-30] MEDS ORDERED: ENOXAPARIN 80 MG/0.8 ML (LOVENOX) SYR SC SCH ×2 (09:00→18:30)
--- NOTE | 2022-06-30 09:35 | Consultation-Cardiology ---
HPI-Cardiology Cardiology Consultation: Date of Consultation 06/30/22 Time Seen by a Provider: 08:30 Date of Admission Attending Physician Aman Stubbs MD Admitting Physician Admitting Physician: Cheyanne Saleem MD Attending Physician: Cheyanne Saleem MD Consulting Physician GARRET ANDREWS MD, MA, FACP, FACC, FSCAI, CCDS Physician requesting consult: Dr Saleem HPI: Chief Complaint: Elevated troponin PE Ms. Cabrera is an 82 yr old female who has been admitted to [facility] from [facility] with bilat PE. She reports on Tuesday of last week she had taken her to [place] for pulmonary rehab and once they arrived home she felt nauseated and as though she would pass out. She went and laid down and symptoms resolved after resting. No further c/o nausea. No c/o vomiting or diarrhea. She reports she did have some pressure in her chest which she describes as mild. She states it did not change with activity and has been constant since Tuesday. She reports on Tuesday morning she went to [facility] and when she got home she felt generally unwell; reporting weakness, fatigue, gen malaise. She reports she went to bed and rested for a few hours, got up and tried to do a few things. She states she continued to feel generally unwell and fatigued so she went back to bed. She woke up Tuesday morning still feeling weak and fatigued, she reports she slept most of the day. She denies any SOB or palpitations. She reports on Tuesday she got up and went to have her routing mammogram. She states she went to [facility] and when she returned home she again felt weak. She reports dizziness. She states around 1300 yesterday she would try to reach for the counter top or an object and was "missing" the object knocking things over at home. She reports that is when she came to the ED. No report of LE swelling. No c/o any falls. She reports the pressure in her chest has eased up to slight heaviness. She reports she has sleep apnea, but d/t freq urination during the night she is not able to use her CPAP. No report of syncope. No fever or chills. Review of Systems-Cardiology Review of Systems Constitutional: As described under HPI; No chills, No fever Eyes: As described under HPI Ears/Nose/Throat: No epistaxis, No recent hearing loss Respiratory: As described under HPI Cardiovascular: As described under HPI Gastrointestinal: As described under HPI Genitourinary: No dysuria; hematuria (reports chronic - follows with urology) Musculoskeletal: no symptoms reported Skin: No rash on exposed areas, No ulcerations on exposed areas Psychiatric/Neurological: No anxiety, No depression, No seizure, No focal weakness, No syncope Hematologic: No bleeding abnormalities EVX-Omgygk-Hvtqvf Hx Patient Social History Smoking Status: Never a Smoker Have you traveled recently?: No Alcohol Use?: No Pt feels they are or have been: No Immunizations Up To Date Date of Influenza Vaccine: Feb 13, 2022 Past Medical History PMH As described under Assessment. Family Medical History Family Medical History: She reports her mother had breast cancer. She reports her grand-mother had "heart trouble" No reported family h/o CVA Allergies and Home Medications Allergies Coded Allergies: No Known Drug Allergies (Unverified , 06/29/22) Patient Home Medication List Home Medication List Reviewed: Yes Physical Exam-Cardiology Physical Exam Vital Signs/I&O 06/29/22 06/29/22 06/30/22 06/30/22 22:00 23:00 00:00 00:00 Temp 37.0 Pulse 64 70 69 Resp 21 18 16 B/P (MAP) 151/81 (116) 159/80 (114) 151/78 (110) Pulse Ox 94 92 94 O2 Delivery Room Air Room Air Room Air 06/30/22 06/30/22 06/30/22 06/30/22 01:00 04:00 06:15 07:12 Pulse 71 72 78 Resp 16 B/P (MAP) 158/72 (100) Pulse Ox 94 97 O2 Delivery Room Air Room Air 06/30/22 06/30/22 07:39 08:00 Temp 37.0 Pulse 85 Resp 18 B/P (MAP) 145/77 (99) Pulse Ox 96 96 O2 Delivery Room Air Room Air 06/30/22 00:00 Intake Total 1130 ml Balance 1130 ml Capillary Refill : Less Than 3 Seconds Constitutional: AAO x 3, well-developed, well-nourished HEENT: PERRL, hearing is well preserved, oral hygience is good Neck: No carotid bruit; carotid pulses are 2 + bilaterally Respiratory: No accessory muscle use, No respiratory distress; chest expansion is symmetric, chest is bilaterally symmetric, lungs clear to auscultation Cardiovascular: regular rate-rhythm; No JVD; S1 and S2 Gastrointestinal: No tender; soft, round; No guarding; audible bowel sounds Extremities: no lower extremity edema bilateral Neurologic/Psychiatric: grossly intact (moves all extremities) Skin: normal color, warm/dry; No rash on exposed areas, No ulcerations on exposed areas Data Review Labs Laboratory Tests 06/29/22 15:35: White Blood Count 24.1H, Red Blood Count 4.37, Hemoglobin 12.3, Hematocrit 37, Mean Corpuscular Volume 86, Mean Corpuscular Hemoglobin 28, Mean Corpuscular Hemoglobin Concent 33, Red Cell Distribution Width 14.9H, Platelet Count 62L, Mean Platelet Volume 10.3, Immature Granulocyte % (Auto) 2, Neutrophils (%) (Auto) 5L, Lymphocytes (%) (Auto) 48H, Monocytes (%) (Auto) 44H, Eosinophils (%) (Auto) 0, Basophils (%) (Auto) 0, Neutrophils # (Auto) 1.3L, Lymphocytes # (Auto) 11.6H, Monocytes # (Auto) 10.7H, Eosinophils # (Auto) 0.0, Basophils # (Auto) 0.1, Immature Granulocyte # (Auto) 0.5H, Neutrophils % (Manual) 4, Lymphocytes % (Manual) 70, Monocytes % (Manual) 15, Eosinophils % (Manual) 0, Basophils % (Manual) 1, Metamyelocytes % 1, Band Neutrophils 1, Nucleated Red Blood Cells 1, Atypical Lymphocytes 8, Prothrombin Time 14.7, INR Comment 1.1, Activated Partial Thromboplast Time 28, D-Dimer > 20.00H, Sodium Level 141, Potassium Level 3.4L, Chloride Level 102, Carbon Dioxide Level 23, Anion Gap 16H , Blood Urea Nitrogen 24H, Creatinine 1.27, Estimat Glomerular Filtration Rate 43, BUN/Creatinine Ratio 19, Glucose Level 152H, Calcium Level 9.5, Corrected Calcium 9.1, Magnesium Level 1.7, Total Bilirubin 0.3, Aspartate Amino Transf (AST/SGOT) 22, Alanine Aminotransferase (ALT/SGPT) 12, Alkaline Phosphatase 82, Troponin I 0.72*H, Total Protein 7.8, Albumin 4.5 06/29/22 15:36: Glucometer 140H 06/29/22 15:50: Lactic Acid Level 0.93 06/29/22 16:00: Influenza Type A (RT-PCR) Not Detected, Influenza Type B (RT-PCR) Not Detected, SARS-CoV-2 RNA (RT-PCR) Not Detected 06/29/22 17:05: Urine Color YELLOW, Urine Clarity SL CLOUDY, Urine pH 5.5, Urine Specific [place] 1.010L, Urine Protein 1+H, Urine Glucose (UA) NEGATIVE, Urine Ketones NEGATIVE, Urine Nitrite POSITIVEH, Urine Bilirubin NEGATIVE, Urine Urobilinogen 0.2, Urine Leukocyte Esterase TRACEH, Urine RBC (Auto) 1+H, Urine RBC NONE, Urine WBC 2-5, Urine Squamous Epithelial Cells 5-10, Urine Crystals NONE, Urine Bacteria MODERATEH, Urine Casts NONE, Urine Mucus NEGATIVE, Urine Culture Indicated YES 06/29/22 17:55: Troponin I 1.04*H 06/30/22 01:50: Troponin I 1.696*H 06/30/22 04:46: White Blood Count 21.3H, Red Blood Count 4.16, Hemoglobin 11.8, Hematocrit 36, Mean Corpuscular Volume 86, Mean Corpuscular Hemoglobin 28, Mean Corpuscular Hemoglobin Concent 33, Red Cell Distribution Width 14.9H, Platelet Count 58L, Mean Platelet Volume 9.5, Immature Granulocyte % (Auto) 2, Neutrophils (%) (Auto) 8L, Lymphocytes (%) (Auto) 31, Monocytes (%) (Auto) 58H, Eosinophils (%) (Auto) 0, Basophils (%) (Auto) 0, Neutrophils # (Auto) 1.8, Lymphocytes # (Auto) 6.6H, Monocytes # (Auto) 12.4H, Eosinophils # (Auto) 0.0, Basophils # (Auto) 0.1, Immature Granulocyte # (Auto) 0.4H, Percent Immature Platelet Fraction 2.3, Prothrombin Time 15.9H, INR Comment 1.2, Activated Partial Thromboplast Time 36H , Sodium Level 142, Potassium Level 3.1L, Chloride Level 108H, Carbon Dioxide Level 20L, Anion Gap 14, Blood Urea Nitrogen 14, Creatinine 0.77, Estimat Glomerular Filtration Rate 78, BUN/Creatinine Ratio 18, Glucose Level 128H, Calcium Level 8.8 A/P-Cardiology Assessment/Admission Diagnosis NSTEMI vs Type 2 [place] secondary to pulmonary embolism Bilat PE - CTA of the chesst on 06-29-22: Findings consistent with bilateral pulmonary emboli. Overall clot burden is very small. There is no evidence of right heart failure ?TIA - monitor on tele - consider ILR implant Leukocytosis - management per medical services Thrombocytopenia - undetermined etiology - advise consideration of hematology/oncology consult Thyroid nodules seen on CTA of the neck on 06-29-22 - advise f/u as an out pt NIRAJ - non-compliant with CPAP HTN - Coreg and Verapamil at home HLD - Lipitor at home - followed by her PCP DM 2 - management per medical services Discussion and Recomendations Bilat PE seen on CTA of the chest of 06-29-22 - complex management issue - she needs to be on anticoagulation d/t PE, however, she also has thrombocytopenia (new finding) - we advise OAC with Eliquis and consult with hematology/oncology services - advise echocardiogram to eval structure and function - Venous duplex today NSTEMI vs Type 2 [place] d/t PE Leukocytosis - undetermined etiology - management per medical services HTN - continue home medications of Coreg and Verapamil NIRAJ - advise compliance with CPAP HLD - advis continuation of home dose of Lipitor Thyroid nodules seen on CTA of the neck - management per medical services ?TIA - continue telemetry to monitor for arrhythmia - may need to consider ILR placement as out pt Monitor lab closely Replace electrolytes as indicated Further recs will be based on her hospital course We have spoken with her attending, Dr. Saleem, regarding all of the above issues We would like to thank her for this consult GARRET ANDREWS MD FACP FAC CCDS Jun 30, 2022 09:35
[2022-06-30] MEDS ORDERED: CARV6.25 PO (11:09)
[2022-06-30] MEDS ORDERED: FENO145T26 PO ×2 (11:24→12:28)
[2022-06-30] MEDS ORDERED: TRAN4TAB25 PO ×2 (11:24→12:28)
[2022-06-30] MEDS ORDERED: ATOR20TA66 PO ×2 (11:24→12:28)
[2022-06-30] MEDS ORDERED: METF750T45 PO ×2 (11:24→12:28)
[2022-06-30] MEDS ORDERED: DUTA0.5C36 PO ×2 (11:24→12:28)
[2022-06-30] MEDS ORDERED: CRAN1CAP5 PO (11:24)
[2022-06-30] MEDS ORDERED: VERA240C4 PO ×2 (11:24→12:28)
[2022-06-30] MEDS ORDERED: CHOL500050 PO ×2 (11:24→12:28)
[2022-06-30] MEDS ORDERED: METH1TAB21 PO ×2 (11:24→12:28)
[2022-06-30] MEDS ORDERED: MINO2.5T PO ×2 (11:24→12:28)
[2022-06-30] MEDS ORDERED: ASPI-999 PO (11:24)
[2022-06-30] MEDS ORDERED: ASPI-1238 PO (12:28)
[2022-06-30] MEDS ORDERED: CARV6.252 PO (12:28)
[2022-06-30] MEDS ORDERED: CRAN250C2 PO (12:28)
[2022-06-30] MEDS ORDERED: PATIENT MAY USE OWN MED,SINGLE MED PO SCH (12:30)
--- NOTE | 2022-06-30 12:39 | Diagnostic Imaging Report ---
PROCEDURE: US Venous Lower Ext Luis. TECHNIQUE: Multiple real-time grayscale images were obtained over the lower extremities in various projections, bilaterally. Additional duplex Doppler and color Doppler images were also obtained. INDICATION: Pulmonary embolism. FINDINGS: There is no evidence of right or left lower extremity DVT. Both lower extremity deep venous systems demonstrate normal compressibility with normal response to augmentation and Valsalva. No fluid collection or mass is detected. IMPRESSION: No evidence of right or left lower extremity DVT. Dictated by: Dictated on workstation # [id number]
[2022-06-30] MEDS ORDERED: VERAPAMIL SR 240 MG (CALAN SR) TAB PO NR (13:15)
--- NOTE | 2022-06-30 15:36 | Oncology Consultation ---
Visit Information Visit Information Date of Admission Jun 29, 2022 at 20:12 Attending Physician Aman Stubbs MD Admitting Physician Admitting Physician: Cheyanne Saleem MD Attending Physician: Cheyanne Saleem MD Chief Complaint We are called to evaluate and management of thrombocytopenia and bilateral tiny pulmonary emboli (PE). Interval History Ms Cabrera is an 82 year old white female admitted to ICU 06/29/22 for pre-syncope and chest pain and also found to have UTI. She was also found to have WBC 24 and Plt 66 and CTA showed bilateral tiny PE. She stated that she has frequent UTI lately and was never told that she has blood counts problems. She is now treated with IV Rocephin and eliquis. No fever. I consulted the patient on: 06/30/22 15:30 Time Seen by Provider: 15:30 Review of Systems Constitutional: see HPI Health Status Allergies Coded Allergies: No Known Drug Allergies (Unverified , 06/29/22) Home Medications Aspirin (Aspirin EC) 81 Mg Tablet.dr, 81 MG PO HS, (Reported) Atorvastatin Calcium (Atorvastatin Calcium) 20 Mg Tablet, 10 MG PO HS, (Reported) TAKES OF A 20MG TAB LAST FILLED 03-01-2022 #90/90 DAY SUPPLY Carvedilol (Carvedilol) 6.25 Mg Tablet, 6.25 MG PO BID, (Reported) Cholecalciferol (Vitamin D3) (Vitamin D3) 125 Mcg (5000 Unit) Capsule, 125 MCG PO DAILY, (Reported) Cranberry Extract (Cranberry) 250 Mg Capsule, 250 MG PO DAILY, (Reported) Dutasteride (Dutasteride) 0.5 Mg Capsule, 0.5 MG PO DAILY, (Reported) Fenofibrate Nanocrystallized (Fenofibrate) 145 Mg Tablet, 145 MG PO DAILY, (Reported) LAST FILLED 02-15-2022 #90/90 DAY SUPPLY Metformin HCl (Metformin HCl ER) 750 Mg Tab.er.24h, 750 MG PO BID WITH MEALS, (Reported) Methenamine Hippurate (Methenamine Hippurate) 1 Gram Tablet, 1 GM PO BID, (Reported) Minoxidil (Minoxidil) 2.5 Mg Tablet, 2.5 MG PO DAILY, (Reported) Trandolapril (Trandolapril) 4 Mg Tablet, 4 MG PO DAILY, (Reported) LAST FILLED 02-15-2022 #90/90 DAY SUPPLY Verapamil HCl (Verapamil Sr) 240 Mg Cap24h.pel, 240 MG PO DAILY, (Reported) WGG-Asxdro-Wshswq Hx Patient Social History Smoking Status: Never a Smoker Alcohol Use?: No Have you traveled recently?: No Immunizations Up To Date Date of Influenza Vaccine: Feb 13, 2022 Physical Exam Vital Signs Vital Signs - First Documented 06/29/22 06/29/22 15:30 21:19 Temp 36.5 Pulse 93 Resp 21 B/P (MAP) 200/90 (126) Pulse Ox 96 O2 Delivery Room Air FiO2 21 Capillary Refill : Less Than 3 Seconds Height, Weight, BMI Height: '" Weight: lbs. oz. kg; 28.82 BMI Method: General Appearance: No Apparent Distress HEENT: PERRL/EOMI Respiratory: No Accessory Muscle Use, No Respiratory Distress Gastrointestinal: Non Tender, Soft Extremity: Non Tender, No Calf Tenderness, No Pedal Edema Neurologic/Psychiatric: Alert, Oriented x3 Data Review Labs Laboratory Tests 06/30/22 04:46 Laboratory Tests 06/29/22 15:35: White Blood Count 24.1H, Red Cell Distribution Width 14.9H, Platelet Count 62L, Neutrophils (%) (Auto) 5L, Lymphocytes (%) (Auto) 48H, Monocytes (%) (Auto) 44H, Neutrophils # (Auto) 1.3L, Lymphocytes # (Auto) 11.6H, Monocytes # (Auto) 10.7H, Immature Granulocyte # (Auto) 0.5H, D-Dimer > 20.00H, Potassium Level 3.4L, Anion Gap 16H, Blood Urea Nitrogen 24H, Glucose Level 152H, Troponin I 0.72*H 06/29/22 15:36: Glucometer 140H 06/29/22 15:50: 06/29/22 16:00: 06/29/22 17:05: Urine Specific [place] 1.010L, Urine Protein 1+H, Urine Nitrite POSITIVEH, Urine Leukocyte Esterase TRACEH, Urine RBC (Auto) 1+H, Urine Bacteria MODERATEH 06/29/22 17:55: Troponin I 1.04*H 06/30/22 01:50: Troponin I 1.696*H 06/30/22 04:46: White Blood Count 21.3H, Red Cell Distribution Width 14.9H, Platelet Count 58L, Neutrophils (%) (Auto) 8L, Monocytes (%) (Auto) 58H, Lymphocytes # (Auto) 6.6H, Monocytes # (Auto) 12.4H, Immature Granulocyte # (Auto) 0.4H, Prothrombin Time 15.9H, Activated Partial Thromboplast Time 36H, Potassium Level 3.1L, Chloride Level 108H, Carbon Dioxide Level 20L, Glucose Level 128H Impression & Plan Impression & Plan UA showed +nitro and red cells c/w UTI IMP: 1. UTI, recurrent 2. Leukocytosis and thrombocytopenia, 3. Bilateral tiny PE, minimal symptoms, which is most likely secondary. 4. Chest pain, ? cardiac cause. Rec: 1. Treat the UTI as you are doing for now. Closely monitoring her counts. 2. Treat her PE with half dose of eliquis due to her thrombocytopenia and infection. 3. hem-path review the slide. I will f/u with you. Thank you for the consultation. FRACISCO DAWN MD Jun 30, 2022 15:36
[2022-06-30 15:43] LABS: BAND NEUTROPHILS 1 %; LYMPHOCYTES % (MANUAL) 29 %; METAMYELOCYTES % 3 %; MONOCYTES % (MANUAL) 6 %; NEUTROPHILS % (MANUAL) 4 %
[2022-06-30 15:44] LABS: NUCLEATED RED BLOOD CELLS 3
[2022-06-30 15:47] LABS: BURR CELLS SLIGHT; PLATELET CLUMPS NONE SEEN; PLATELET ESTIMATE DECREASED; POIKILOCYTOSIS SLIGHT
[2022-06-30 15:48] LABS: RETICULOCYTE % 0.87 % (0.50-2.40)
[2022-06-30 15:57] LABS: ABSOLUTE RETIC # 36 10e9/uL (24-90)
[2022-06-30 16:38] LABS: BLAST CELLS 57 %
[2022-06-30] MEDS: TRANDOLAPRIL 4 MG PO SCH (17:54)
[2022-06-30] MEDS ORDERED: cefTRIAXone 1 GM IV (PRE-MIX) 50 ML IV SCH (18:30)
--- NOTE | 2022-06-30 19:19 | History & Physical ---
HPI History of Present Illness: 82 yo female presented to ER after she had incoordination of right hand and left arm pain concerning for stroke. She notes that at the end of last week she began to feel generally unwell, with vague symptoms, but severe enough that she spent a lot of time lying around in bed. Yesterday she had a mammogram scheduled, so she went to that and to the store, but then her noted that she was off, she was knocking cups over with her right hand and not grasping where she wanted to. She called her regular doctor who told them to go to the ER. She feels her hand incoordination persists but is milder. She denies chest pain or shortness of breath, but has had right arm pain. She denies history of stroke or PA. She does take baby aspirin daily. She has recurrent UTIs and was to see Urology at today for follow up, after they started her on maintenance antibiotic, cranberry in April. She thought she had been doing okay as far as UTI before she came in, but notes she was told in ER she has bad UTI again. This morning she says she feels about the same as she has the last few days. Source: patient Date seen by provider: Jun 30, 2022 Time Seen by Provider: 09:50 Attending Physician Aman Stubbs MD PCP Admitting Physician: Tyra Montaño MD Attending Physician: Tyra Montaño MD Consult Date of Admission Jun 29, 2022 at 20:12 Home Medications Home Medications Reviewed patient Home Medication Reconciliation performed by pharmacy medication reconciliations orthopedic technician and/or nursing. Patients Allergies have been reviewed. Allergies Coded Allergies: No Known Drug Allergies (Unverified , 06/29/22) VIE-Gcoyxf-Fhdidd Hx Patient Social History Smoking Status: Never a Smoker Alcohol Use?: No Have you traveled recently?: No Immunizations Up To Date Influenza Vaccine Up-to-Date: Yes; Up-to-Date COVID19 Vaccine Photographer'S Assistant: MODERNA Past Medical History PMHx: HTN Recurrent UTI DMII HLD SurgHx: Tonsillectomy D and C Cataract surgery Family Medical History Significant Family History: No Pertinent Family Hx Review of Systems (CHC) Constitutional: No fever; malaise Respiratory: No cough, No short of breath Cardiovascular: No chest pain Gastrointestinal: No abdominal pain, No constipation, No diarrhea, No nausea, No vomiting Genitourinary: No dysuria Musculoskeletal: joint pain Skin: No rash Reviewed Test Results Reviewed Test Results Lab Laboratory Tests Test 06/29/22 15:35 06/29/22 15:36 06/29/22 15:50 06/29/22 16:00 Range/Units White Blood Count 24.1 H 4.3-11.0 10^3/uL Red Blood Count 4.37 3.80-5.11 10^6/uL Hemoglobin 12.3 11.5-16.0 g/dL Hematocrit 37 35-52 % Mean Corpuscular Volume 86 80-99 fL Mean Corpuscular Hemoglobin 28 25-34 pg Mean Corpuscular Hemoglobin Concent 33 32-36 g/dL Red Cell Distribution Width 14.9 H 10.0-14.5 % Platelet Count 62 L 130-400 10^3/uL Mean Platelet Volume 10.3 9.0-12.2 fL Immature Granulocyte % (Auto) 2 % Neutrophils (%) (Auto) 5 L 42-75 % Lymphocytes (%) (Auto) 48 H 12-44 % Monocytes (%) (Auto) 44 H 0-12 % Eosinophils (%) (Auto) 0 0-10 % Basophils (%) (Auto) 0 0-10 % Neutrophils # (Auto) 1.3 L 1.8-7.8 10^3/uL Lymphocytes # (Auto) 11.6 H 1.0-4.0 10^3/uL Monocytes # (Auto) 10.7 H 0.0-1.0 10^3/uL Eosinophils # (Auto) 0.0 0.0-0.3 10^3/uL Basophils # (Auto) 0.1 0.0-0.1 10^3/uL Immature Granulocyte # (Auto) 0.5 H 0.0-0.1 10^3/uL Neutrophils % (Manual) 4 % Lymphocytes % (Manual) 70 % Monocytes % (Manual) 15 % Eosinophils % (Manual) 0 % Basophils % (Manual) 1 % Metamyelocytes % 1 % Band Neutrophils 1 % Nucleated Red Blood Cells 1 Atypical Lymphocytes 8 % Prothrombin Time 14.7 12.2-14.7 SEC INR Comment 1.1 0.8-1.4 Activated Partial Thromboplast Time 28 24-35 SEC D-Dimer > 20.00 H 0.00-0.49 UG/ML Sodium Level 141 135-145 MMOL/L Potassium Level 3.4 L 3.6-5.0 MMOL/L Chloride Level 102 98-107 MMOL/L Carbon Dioxide Level 23 21-32 MMOL/L Anion Gap 16 H 5-14 MMOL/L Blood Urea Nitrogen 24 H 7-18 MG/DL Creatinine 1.27 0.60-1.30 MG/DL Estimat Glomerular Filtration Rate 43 BUN/Creatinine Ratio 19 Glucose Level 152 H 70-105 MG/DL Calcium Level 9.5 8.5-10.1 MG/DL Corrected Calcium 9.1 8.5-10.1 MG/DL Magnesium Level 1.7 1.6-2.4 MG/DL Total Bilirubin 0.3 0.1-1.0 MG/DL Aspartate Amino Transf (AST/SGOT) 22 5-34 U/L Alanine Aminotransferase (ALT/SGPT) 12 0-55 U/L Alkaline Phosphatase 82 40-136 U/L Troponin I 0.72 *H <0.30 NG/ML Total Protein 7.8 6.4-8.2 GM/DL Albumin 4.5 3.2-4.5 GM/DL Glucometer 140 H 70-110 MG/DL Lactic Acid Level 0.93 0.50-2.00 MMOL/L Influenza Type A (RT-PCR) Not Detected Not Detecte Influenza Type B (RT-PCR) Not Detected Not Detecte SARS-CoV-2 RNA (RT-PCR) Not Detected Not Detecte Test 06/29/22 17:05 06/29/22 17:55 06/30/22 01:50 06/30/22 04:46 Range/Units Urine Color YELLOW Urine Clarity SL CLOUDY Urine pH 5.5 5-9 Urine Specific [place] 1.010 L 1.016-1.022 Urine Protein 1+ H NEGATIVE Urine Glucose (UA) NEGATIVE NEGATIVE Urine Ketones NEGATIVE NEGATIVE Urine Nitrite POSITIVE H NEGATIVE Urine Bilirubin NEGATIVE NEGATIVE Urine Urobilinogen 0.2 < = 1.0 MG/DL Urine Leukocyte Esterase TRACE H NEGATIVE Urine RBC (Auto) 1+ H NEGATIVE Urine RBC NONE /HPF Urine WBC 2-5 /HPF Urine Squamous Epithelial Cells 5-10 /HPF Urine Crystals NONE /LPF Urine Bacteria MODERATE H /HPF Urine Casts NONE /LPF Urine Mucus NEGATIVE /LPF Urine Culture Indicated YES Troponin I 1.04 *H 1.696 *H <0.028 NG/ML White Blood Count 21.3 H 4.3-11.0 10^3/uL Red Blood Count 4.16 3.80-5.11 10^6/uL Hemoglobin 11.8 11.5-16.0 g/dL Hematocrit 36 35-52 % Mean Corpuscular Volume 86 80-99 fL Mean Corpuscular Hemoglobin 28 25-34 pg Mean Corpuscular Hemoglobin Concent 33 32-36 g/dL Red Cell Distribution Width 14.9 H 10.0-14.5 % Platelet Count 58 L 130-400 10^3/uL Mean Platelet Volume 9.5 9.0-12.2 fL Immature Granulocyte % (Auto) 2 % Neutrophils (%) (Auto) 8 L 42-75 % Lymphocytes (%) (Auto) 31 12-44 % Monocytes (%) (Auto) 58 H 0-12 % Eosinophils (%) (Auto) 0 0-10 % Basophils (%) (Auto) 0 0-10 % Neutrophils # (Auto) 1.8 1.8-7.8 10^3/uL Lymphocytes # (Auto) 6.6 H 1.0-4.0 10^3/uL Monocytes # (Auto) 12.4 H 0.0-1.0 10^3/uL Eosinophils # (Auto) 0.0 0.0-0.3 10^3/uL Basophils # (Auto) 0.1 0.0-0.1 10^3/uL Immature Granulocyte # (Auto) 0.4 H 0.0-0.1 10^3/uL Neutrophils % (Manual) 4 % Lymphocytes % (Manual) 29 % Monocytes % (Manual) 6 % Metamyelocytes % 3 % Band Neutrophils 1 % Nucleated Red Blood Cells 3 Atypical Lymphocytes % Blast Cells 57 % Platelet Estimate DECREASED Clumped Platelets NONE SEEN Percent Immature Platelet Fraction 2.3 0.0-7.6 % Poikilocytosis SLIGHT Chris Cells SLIGHT Absolute Reticulocyte Count 36 24-90 10e9/uL Percent Reticulocyte Count 0.87 0.50-2.40 % Prothrombin Time 15.9 H 12.2-14.7 SEC INR Comment 1.2 0.8-1.4 Activated Partial Thromboplast Time 36 H 24-35 SEC Sodium Level 142 135-145 MMOL/L Potassium Level 3.1 L 3.6-5.0 MMOL/L Chloride Level 108 H 98-107 MMOL/L Carbon Dioxide Level 20 L 21-32 MMOL/L Anion Gap 14 5-14 MMOL/L Blood Urea Nitrogen 14 7-18 MG/DL Creatinine 0.77 0.60-1.30 MG/DL Estimat Glomerular Filtration Rate 78 BUN/Creatinine Ratio 18 Glucose Level 128 H 70-105 MG/DL Calcium Level 8.8 8.5-10.1 MG/DL Radiology NAME: KATIE CRUZ [facility] REC#: [id number] PT STATUS: REG ER : 1940 PHYSICIAN: ALENA PEÑA MD ADMIT DATE: 06/29/22/ER FS Signed Date of Exam:06/29/22 CT HEAD WO-R/O STROKE PROCEDURE: CT head wo r/o stroke. TECHNIQUE: Multiple contiguous axial images were obtained through the brain without the use of intravenous contrast. Auto Exposure Controls were utilized during the CT exam to meet ALARA standards for radiation dose reduction. INDICATION: Blurred vision and weakness. COMPARISON: No prior studies are available for comparison. FINDINGS: Ventricles and sulci are within normal limits. No sulcal effacement or midline shift is identified. No acute intra-axial or extra-axial hemorrhage is detected. Cisterns are patent. Visualized paranasal sinuses are clear. IMPRESSION: No acute intracranial process is detected. Results were discussed with Dr. Peña at 04:03 p.m. Dictated by: Dictated on workstation # [id number] Dict: 06/29/22 1601 Trans: 06/29/22 1836 AS6 [id number] Interpreted by: JONNIE PAULA MD Electronically signed by: JONNIE PAULA MD 06/29/22 1836 NAME: KATIE CRUZ [facility] REC#: [id number] PT STATUS: REG ER : 1940 PHYSICIAN: ALENA PEÑA MD ADMIT DATE: 06/29/22/ER FS Signed Date of Exam:06/29/22 CHEST 1 VIEW AP/PA ONLY INDICATION: Right upper extremity weakness COMPARISON: None available. TECHNIQUE: Single radiograph of the chest dated 06/23/2022. FINDINGS: The cardiac silhouette is within normal limits in size. No significant pulmonary vascular congestion. Senescent changes of the lungs without focal pulmonary opacity. No significant pleural effusion. No pneumothorax. No acute osseous abnormality. IMPRESSION: Senescent changes of the lungs without superimposed acute cardiopulmonary abnormality. Dictated by: Dictated on workstation # [id number] Dict: 06/29/22 1620 Trans: 06/29/221742 CV [id number] Interpreted by: DEREK AMAYA MD Electronically signed by: DEREK AMAYA MD 06/29/221742 NAME: KATIE CRUZ [facility] REC#: [id number] PT STATUS: REG ER : 1940 PHYSICIAN: ALENA PEÑA MD ADMIT DATE: 06/29/22/ER FS Signed Date of Exam:06/29/22 CT ANGIO HEAD/NECK PROCEDURE: CT angiography of the head and CT angiography of the neck with and without contrast. TECHNIQUE: Contiguous noncontrast images were obtained from the skull base through the vertex. After intravenous contrast administration, helical CT angiography of the neck was performed. Source data was reformatted into 3D MIP projections. Delayed post contrast acquisition was also obtained. Auto Exposure Controls were utilized during the CT exam to meet ALARA standards for radiation dose reduction. INDICATION: Right-sided weakness. CTA NECK: There is a three-vessel branching pattern to the aortic arch. The right and left common carotid arteries are widely patent. No focal stenosis is identified. Both carotid bifurcations are unremarkable and show no focal stenosis. The right and left internal carotid arteries appear to be widely patent. There is some calcified plaque at the carotid siphons bilaterally. The left vertebral artery is dominant. Both vertebral arteries are widely patent. CTA HEAD: The basilar artery is widely patent. The right posterior cerebral artery is hypoplastic consistent with origin. The right posterior communicating artery feeds the right TRAFFIC COORDINATOR. The left TRAFFIC COORDINATOR is widely patent. The right and left anterior cerebral arteries are widely patent. The M1 and M2 branches of the right and left middle cervical arteries appear to be widely patent. No thromboembolism is identified. No large vessel occlusion is detected. Note is made of multiple low-attenuation nodules throughout both lobes of the thyroid gland. IMPRESSION: 1. Essentially unremarkable CT angiogram of the head and neck. No thromboembolism or large vessel occlusion is identified. 2. Bilateral thyroid nodules. This could be evaluated with ultrasound on a nonemergent basis if not already performed. Dictated by: Dictated on workstation # [id number] Dict: 06/29/22 1705 Trans: 06/29/221835 [facility] [id number] Interpreted by: JONNIE PAULA MD Electronically signed by: JONNIE PAULA MD 06/29/221835 NAME: KATIE CRUZ [facility] REC#: [id number] PT STATUS: REG ER : 1940 PHYSICIAN: ALENA PEÑA MD ADMIT DATE: 06/29/22/ER FS Signed Date of Exam:06/29/22 CT ANGIO CHEST W PROCEDURE: CT angiography of the chest with contrast. TECHNIQUE: Multiple contiguous axial images were obtained through the chest after uneventful bolus administration of intravenous contrast. 3D reconstructed CTA MIP acquisitions were also performed. Auto Exposure Controls were utilized during the CT exam to meet ALARA standards for radiation dose reduction. INDICATION: Elevated D-dimer. No prior studies are available for comparison. FINDINGS: Findings are positive for pulmonary emboli. There are some filling defects involving a right upper lobe lobar pulmonary arterial branch as well as right lower lobe lobar and segmental branches. There is a tiny filling defect in a left lower lobe segmental branch. Upper lobes are unremarkable. Overall clot burden is very small. No definite findings of right heart failure are detected. Thoracic aorta is normal in caliber. There is no dissection. There is no pericardial or pleural fluid identified. Lungs appear to be clear. No infiltrates are seen. There is no nodule or mass. The upper abdomen does show low-attenuation within the right lobe of the liver, suggestive of a cyst. IMPRESSION: 1. Findings consistent with bilateral pulmonary emboli. Overall clot burden is very small. There is no evidence of right heart failure. Dictated by: Dictated on workstation # [id number] Dict: 06/29/22 1738 Trans: 06/29/221835 [id number] Interpreted by: JONNIE PAULA MD Electronically signed by: JONNIE PAULA MD 06/29/22 1836 Physical Exam-([facility]C) Physical Exam Vital Signs VS - Last 72 Hours, by Label 06/29/22 06/29/22 06/29/22 06/29/22 15:30 19:26 20:23 20:28 Temp 36.5 36.9 Pulse 93 71 70 75 Resp 21 18 23 B/P (MAP) 200/90 (126) 162/79 143/90 (125) Pulse Ox 96 97 94 O2 Delivery Room Air Room Air Room Air 06/29/22 06/29/22 06/29/22 06/29/22 20:30 20:45 21:00 21:15 Pulse 71 68 64 68 Resp 19 19 17 11 B/P (MAP) 143/70 (101) 139/77 (82) 134/59 (109) 147/68 (85) Pulse Ox 95 93 93 94 O2 Delivery Room Air Room Air Room Air Room Air 06/29/22 06/29/22 06/29/22 06/29/22 21:18 21:19 21:30 22:00 Pulse 68 64 Resp 12 21 B/P (MAP) 139/84 (125) 151/81 (116) Pulse Ox 97 97 94 94 O2 Delivery Room Air Room Air Room Air FiO2 21 06/29/22 06/30/22 06/30/22 06/30/22 23:00 00:00 00:00 01:00 Temp 37.0 Pulse 70 69 71 Resp 18 16 B/P (MAP) 159/80 (114) 151/78 (110) Pulse Ox 92 94 O2 Delivery Room Air Room Air 06/30/22 06/30/22 06/30/22 06/30/22 04:00 06:15 07:12 07:39 Temp 37.0 Pulse 72 78 85 Resp 16 18 B/P (MAP) 158/72 (100) 145/77 (99) Pulse Ox 94 97 96 O2 Delivery Room Air Room Air Room Air 06/30/22 06/30/22 06/30/22 06/30/22 08:00 12:00 13:25 14:00 Temp 36.8 Pulse 85 92 Resp 14 B/P (MAP) 153/89 (110) Pulse Ox 96 95 96 O2 Delivery Room Air Room Air Room Air 06/30/22 15:42 Temp 36.6 Pulse 75 Resp 23 B/P (MAP) 159/82 (107) O2 Delivery Nasal Cannula Capillary Refill : Less Than 3 Seconds General Appearance: WD/WN, no apparent distress Eyes: Bilateral Eye PERRL, Bilateral Eye EOMI HEENT: pharynx normal Respiratory: lungs clear, normal breath sounds Cardiovascular: regular rate, rhythm, no murmur Gastrointestinal: normal bowel sounds, non tender, soft Extremities: no pedal edema Neurologic/Psychiatric: 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 Started treatment dose enoxaparin initially, will change to Eliquis. (2) Thrombocytopenia Status: Acute Assessment & Plan: Uncertain etiology. Check peripheral smear, consult Hematology, particularly given need to be on anticoagulation and antiplatelet. (3) Acute cystitis with hematuria Status: Acute Assessment & Plan: Ceftriaxone. (4) TIA (transient ischemic attack) Status: Acute Assessment & Plan: Suspect possible TIA, does have some faint right arm weakness compared to left still. On aspirin, statin. CTA head/neck without occlusion. CT head without acute findings. (5) Leukocytosis Status: Acute Assessment & Plan: Possibly secondary to UTI, but without other signs of sepsis. Peripheral smear being done for thrombocytopenia. (6) Elevated troponin Status: Acute Assessment & Plan: EKG without ischemic changes. Cardiology consulted, appreciate recommendations. (7) Hypokalemia Status: Acute Assessment & Plan: Replace and follow (8) HTN (hypertension) Status: Chronic Assessment & Plan: Resume home meds. (9) HLD (hyperlipidemia) Status: Chronic Assessment & Plan: Resume home statin. (10) Diabetes mellitus Status: Chronic Assessment & Plan: Hold metformin inpatient. Sliding scale insulin. Qualifiers: (11) Thyroid nodule Status: Acute Assessment & Plan: Incidental on CTA head/neck, Consider thyroid US outpatient. TYRA MONTAÑO MD Jun 30, 2022 19:19
[2022-06-30] MEDS ORDERED: AtorvaSTATin TABLET 10 MG TABLET PO SCH (21:00)
[2022-06-30] MEDS ORDERED: APIXABAN 5 MG (ELIQUIS) TABLET PO SCH (21:00)
[2022-06-30] MEDS: METHENAMINE HIPP (UREX) 1 GM TABLET PO SCH (21:54)
[2022-06-30] MEDS: inSUlin ASPART (NovoLOG) 1 UNIT/0.01 ML (CHARGE PER UNIT) SC SCH (22:01)
[2022-07-01] VITALS: BP 142/93
[2022-07-01 04:00] VITALS: BP_SYST 133; BP_SYST 154; BP_DIAS 117; BP_DIAS 66
[2022-07-01] MEDS: CATHETER FLUSH 10 ML SYR IVP SCH (05:43)
[2022-07-01 05:46] LABS: HEMATOCRIT 37 % (35-52); HEMOGLOBIN 12.7 g/dL (11.5-16.0); MEAN CORPUSCULAR HEMOGLOBIN 29 pg (25-34); MEAN CORPUSCULAR HGB CONC 34 g/dL (32-36); MEAN CORPUSCULAR VOLUME 84 fL (80-99); MEAN PLATELET VOLUME 10.1 fL (9.0-12.2); PLATELET COUNT 50 10^3/uL (130-400); WHITE BLOOD COUNT 25.9 10^3/uL (4.3-11.0)
[2022-07-01 05:58] LABS: POTASSIUM 3.5 MMOL/L (3.6-5.0)
[2022-07-01 06:00] LABS: CALCIUM 8.7 MG/DL (8.5-10.1)
[2022-07-01 06:04] LABS: CREATININE SERUM 0.79 MG/DL (0.60-1.30)
[2022-07-01] MEDS: inSUlin ASPART (NovoLOG) 1 UNIT/0.01 ML (CHARGE PER UNIT) SC SCH ×2 (06:24→12:43)
[2022-07-01 07:56] VITALS: BP 142/81
[2022-07-01] MEDS: ASPIRIN 325 MG (5 GR) TABLET PO SCH (08:39)
[2022-07-01] MEDS: METHENAMINE HIPP (UREX) 1 GM TABLET PO SCH (08:39)
[2022-07-01] MEDS: TRANDOLAPRIL 4 MG PO SCH (08:40)
[2022-07-01] MEDS ORDERED: FENOFIBRATE 134 MG (LOFIBRA) CAPSULE PO SCH (09:00)
[2022-07-01] MEDS ORDERED: MINOXIDIL 2.5 MG PO SCH (09:00)
[2022-07-01] MEDS ORDERED: FINASTERIDE (PROSCAR) 5 MG TAB PO SCH (09:00)
[2022-07-01] MEDS ORDERED: TRANDOLAPRIL 4 MG PO SCH (09:00)
[2022-07-01] MEDS ORDERED: NON-FORMULARY MEDICATION 1 EA EA (Fenofibrate Nanocrystallized (Fenofibrate) 145 MG) PO SCH (09:00)
[2022-07-01] MEDS ORDERED: VERAPAMIL SR 240 MG (CALAN SR) TAB PO SCH (09:00)
--- NOTE | 2022-07-01 09:07 | Oncology Progress Note ---
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 I discussed the diagnosis of AML with patient and her this morning and recommend to transfer to [facility]. They agreed. They want to take private transportation. Pt is currently stable and eating breakfast in her chair. All further work up will be at [facility]. I have initiated the call for the transfer. CBC today: WBC 25, Hb 12, Plt 50. Cr 0.79. Stop eliquis. Data Review Labs Physical Exam Vital Signs Vital Signs - First Documented 07/01/22 07/01/22 00:00 07:56 Temp 37.1 Pulse 73 Resp 22 B/P (MAP) 142/93 (109) Pulse Ox 93 O2 Delivery Room Air Capillary Refill : Less Than 3 Seconds Height, Weight, BMI Height: '" Weight: lbs. oz. kg; 28.51 BMI Method: General Appearance: No Apparent Distress Focused Exam Lactate Level Impression & Plan Impression & Plan A/P: 1. De-ar AML: Transfer to [facility], accepting physician Dr. Sorto. Check uric acid here per Dr Sorto request. FRACISCO DAWN MD Jul 01, 2022 09:07
--- NOTE | 2022-07-01 09:27 | Progress Note - Cardiology ---
Cardiology SOAP Progress Note Subjective: Sitting up in recliner at the bedside No c/o CP, SOB or palpitations States she is transferring to [facility] today No c/o LE swelling No c/o n/v/d Objective: I&O/Vital Signs 06/30/22 07/01/22 07/01/22 07/01/22 23:39 00:00 00:34 01:00 Temp 36.3 Pulse 73 73 Resp 22 B/P (MAP) 142/93 (109) Pulse Ox 93 97 O2 Delivery Room Air Room Air 07/01/22 07/01/22 07/01/22 07/01/22 04:00 07:00 07:56 08:00 Temp 37.1 Pulse 74 74 77 Resp 21 18 B/P (MAP) 133/117 (122) 142/81 (101) Pulse Ox 92 96 96 O2 Delivery Room Air Room Air Room Air 07/01/22 00:00 Intake Total 550 ml Output Total 0 ml Balance 550 ml Constitutional: AAO x 3, well-developed, well-nourished Respiratory: No accessory muscle use, No respiratory distress; chest expansion is symmetric, chest is bilaterally symmetric, lungs clear to auscultation Cardiovascular: regular rate-rhythm; No JVD; S1 and S2 Gastrointestional: No tender; soft, round; No guarding; audible bowel sounds Extremities: no lower extremity edema bilateral Neurologic/Psychiatric: grossly intact (moves all extremities) Skin: normal color, warm/dry, rash on exposed areas (petechial rash to arms bilat); No ulcerations on exposed areas Results/Procedures: Labs Laboratory Tests 06/30/22 21:51: Glucometer 164H 07/01/22 05:36: White Blood Count 25.9H, Red Blood Count 4.39, Hemoglobin 12.7, Hematocrit 37, Mean Corpuscular Volume 84, Mean Corpuscular Hemoglobin 29, Mean Corpuscular Hemoglobin Concent 34, Red Cell Distribution Width 14.8H, Platelet Count 50L, Mean Platelet Volume 10.1, Sodium Level 140, Potassium Level 3.5L, Chloride Level 105, Carbon Dioxide Level 20L, Anion Gap 15H, Blood Urea Nitrogen 12, Creatinine 0.79, Estimat Glomerular Filtration Rate 76, BUN/Creatinine Ratio 15, Glucose Level 156H, Calcium Level 8.7 Microbiology 06/29/22 Urine Culture - Preliminary, Resulted Gram Negative Teddy A/P: Assessment: NSTEMI vs Type 2 AR secondary to pulmonary embolism Bilat PE - CTA of the chesst on 06-29-22: Findings consistent with bilateral pulmonary emboli. Overall clot burden is very small. There is no evidence of right heart failure - No evidence of DVT on venous duplex of 06-30-22 ?TIA - monitor on tele - no evidence of arrhythmia - consider ILR implant as out pt Leukocytosis - UTI - management per medical services Thrombocytopenia - AML dx on 07-01-[address] Billings - plan is to transfer to [facility] Thyroid nodules seen on CTA of the neck on 06-29-22 - advise f/u as an out pt NIRAJ - non-compliant with CPAP HTN - improved on home medication regimen HLD - continue Lipitor as per home regimen - followed by her PCP DM 2 - management per medical services Plan: Complex management issue Bilat PE seen on CTA of the chest of 06-29-22 - complex management issue - she needs to be on anticoagulation d/t PE, however, she also has thrombocytopenia (worsening) with newly dx AML per Awa (new finding) Leukocytosis - d/t UTI - management per medical services HTN - continue home medications of Coreg and Verapamil NIRAJ - advise compliance with CPAP HLD - continue home dose of Lipitor Thyroid nodules seen on CTA of the neck - management per medical services ?TIA - continue telemetry to monitor for arrhythmia - may need to consider ILR placement as out pt Replace electrolytes AURY GUARDADO Jul 01, 2022 09:27
--- NOTE | 2022-07-01 09:36 | Progress Note - Cardiology ---
Cardiology SOAP Progress Note Subjective: Notes some weakness, but better No focal weakness No cp or palp or syncope or shortness of breath No n/v/d Objective: I&O/Vital Signs 06/30/22 07/01/22 07/01/22 07/01/22 23:39 00:00 00:34 01:00 Temp 36.3 Pulse 73 73 Resp 22 B/P (MAP) 142/93 (109) Pulse Ox 93 97 O2 Delivery Room Air Room Air 07/01/22 07/01/22 07/01/22 07/01/22 04:00 07:00 07:56 08:00 Temp 37.1 Pulse 74 74 77 Resp 21 18 B/P (MAP) 133/117 (122) 142/81 (101) Pulse Ox 92 96 96 O2 Delivery Room Air Room Air Room Air 07/01/22 00:00 Intake Total 550 ml Output Total 0 ml Balance 550 ml Constitutional: AAO x 3, well-developed, well-nourished Respiratory: No accessory muscle use, No respiratory distress; chest expansion is symmetric, chest is bilaterally symmetric, lungs clear to auscultation Cardiovascular: regular rate-rhythm; No JVD; S1 and S2 Gastrointestional: No tender; soft, round; No guarding; audible bowel sounds Extremities: no lower extremity edema bilateral Neurologic/Psychiatric: grossly intact (moves all extremities) Skin: normal color, warm/dry, rash on exposed areas (petechial rash to arms bilat); No ulcerations on exposed areas Results/Procedures: Labs Laboratory Tests 06/30/22 21:51: Glucometer 164H 07/01/22 05:36: White Blood Count 25.9H, Red Blood Count 4.39, Hemoglobin 12.7, Hematocrit 37, Mean Corpuscular Volume 84, Mean Corpuscular Hemoglobin 29, Mean Corpuscular Hemoglobin Concent 34, Red Cell Distribution Width 14.8H, Platelet Count 50L, Mean Platelet Volume 10.1, Sodium Level 140, Potassium Level 3.5L, Chloride Level 105, Carbon Dioxide Level 20L, Anion Gap 15H, Blood Urea Nitrogen 12, Creatinine 0.79, Estimat Glomerular Filtration Rate 76, BUN/Creatinine Ratio 15, Glucose Level 156H, Calcium Level 8.7 Microbiology 06/29/22 Urine Culture - Preliminary, Resulted Gram Negative Teddy Laboratory Tests 06/29/22 15:35 06/30/22 04:46 07/01/22 05:36 A/P: Assessment: Bilat PE - CTA of the chesst on 06-29-22: Findings consistent with bilateral pulmonary emboli. Overall clot burden is very small. 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 Billings - plan is to transfer to [facility] UTI - managed by the [facility] Thyroid nodules seen on CTA of the neck on 06-29-22 - managed by the [facility] NIRAJ - non-compliant with CPAP HTN - improved on home medication regimen HLD - continue Lipitor as per home regimen - followed by her PCP DM 2 - management per Medical services Plan: * Complex management due to multiple comorbidities * Continue current regimen. Heme/Onc has stopped oral anticoag * Agree with transfer to [facility] * Replace electrolytes GARRET ANDREWS MD FACP FACC CCDS Jul 01, 2022 09:36
--- NOTE | 2022-07-01 10:10 | Progress Note ---
RENUJOHAN Chet 07/01/22 1010: Progress Note CC: Limb incoordination HPI: Patient seen at bedside this AM. She is sitting up having breakfast in her recliner. She is anxious to leave the hospital and feels that she is better and her symptoms have resolved. She is peeing a lot and having BMs. She says she feels weak when walking in her room but feels it's because she isn't able to rest well when in the hospital. Her is with her this AM at bedside. Hospital Course: This is an 82 y/o female with a PMH of recurrent UTIs treated by [facility], DMII, HLD, and HTN who presented on 06/29/22 for incoordination of her right hand and coinciding left arm pain. The patient reported that she was unable to grasp glasses/utensils in her kitchen and would bump into them when trying to grab them which caused them to be knocked off counters/tables and to break and she couldn't correct/control this. She noted that at the end of last week she began to feel unwell with vague constitutional symptoms to the point that she spent most of her time lying around in bed. Upon presentation a CT w/o contrast ruled out an acute hemorrhagic stroke. She was also found to have thrombocytopenia, leukocytosis, and a repeat UTI with a HAGMA. The patient also complained of some chest pain and had elevated troponins but EKG negative for STEMI. Imaging showed small pulmonary emboli and cardiology was consulted to follow her for NSTEMI vs Type II SC. 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 Heme/Onc reported these findings to the patient on 07/01/22 and recommended transfer to [facility] for further management of AML to which she was accepted and scheduled to leave the same day. SurgHx: Tonsillectomy D and C Cataract surgery Allergies: NKDA Objective: Vital Signs Date Time Temp Pulse Resp B/P (MAP) Pulse Ox O2 Delivery O2 Flow Rate FiO2 07/01/22 08:00 96 Room Air 07/01/22 07:56 37.1 77 18 142/81 (101) 96 Room Air 07/01/22 07:00 74 07/01/22 04:00 74 21 133/117 (122) 92 Room Air 07/01/22 01:00 73 07/01/22 00:34 97 Room Air 07/01/22 00:00 73 22 142/93 (109) 93 Room Air 06/30/22 23:39 36.3 06/30/22 20:30 Room Air 06/30/22 20:00 84 24 161/78 (105) 93 Room Air 06/30/22 19:35 36.7 81 21 141/83 (102) 94 Nasal Cannula 06/30/22 19:00 81 06/30/22 15:42 36.6 75 23 159/82 (107) Nasal Cannula 06/30/22 14:00 96 Room Air 06/30/22 13:25 92 06/30/22 12:00 36.8 85 14 153/89 (110) 95 Room Air I & O 07/01/22 07:00 Intake Total 600 ml Output Total 0 ml Balance 600 ml Laboratory Tests 06/29/22 15:35: White Blood Count 24.1H, Red Cell Distribution Width 14.9H, Platelet Count 62L, Neutrophils (%) (Auto) 5L, Lymphocytes (%) (Auto) 48H, Monocytes (%) (Auto) 44H, Neutrophils # (Auto) 1.3L, Lymphocytes # (Auto) 11.6H, Monocytes # (Auto) 10.7H, Immature Granulocyte # (Auto) 0.5H, D-Dimer > 20.00H, Potassium Level 3.4L, Anion Gap 16H, Blood Urea Nitrogen 24H, Glucose Level 152H, Troponin I 0.72*H 06/29/22 15:36: Glucometer 140H 06/29/22 15:50: 06/29/22 16:00: 06/29/22 17:05: Urine Specific [place] 1.010L, Urine Protein 1+H, Urine Nitrite POSITIVEH, Urine Leukocyte Esterase TRACEH, Urine RBC (Auto) 1+H, Urine Bacteria MODERATEH 06/29/22 17:55: Troponin I 1.04*H 06/30/22 01:50: Troponin I 1.696*H 06/30/22 04:46: White Blood Count 21.3H, Red Cell Distribution Width 14.9H, Platelet Count 58L, Neutrophils (%) (Auto) 8L, Monocytes (%) (Auto) 58H, Lymphocytes # (Auto) 6.6H, Monocytes # (Auto) 12.4H, Immature Granulocyte # (Auto) 0.4H, Prothrombin Time 15.9H, Activated Partial Thromboplast Time 36H, Potassium Level 3.1L, Chloride Level 108H, Carbon Dioxide Level 20L, Glucose Level 128H 06/30/22 21:51: Glucometer 164H 07/01/22 05:36: White Blood Count 25.9H, Red Cell Distribution Width 14.8H, Platelet Count 50L, Potassium Level 3.5L, Carbon Dioxide Level 20L, Anion Gap 15H, Glucose Level 156H Physical Exam: General: Well-appearing, no acute distress, alert and oriented x3 CV: Normal S1/S2, Regular rate/rhythm Lungs: Lungs CTAB, good air movement and chest rise GI: Bowel sounds active, soft/nontender Extremities: Peripheral pulses 2+/4, no edema Neuro: CN II-XII intact Upper extremities: bilateral 5/5 strength on extension/flexion and shoulder shrug -Sensation is intact and equal bilaterally to crude/fine touch -Negative for dysdiadokinesis -Finger tip to nose testing reveals no dysmetria Lower extremities: Bilateral 5/5 strength on extension/flexion of hips/knees. Sensation intact/equal bilaterally to crude/fine touch Mental: Good spirits, appropriate affect Assessment: This is a 82 y/o female who presented to the ED for limb incoordination, limb pain, and general malaise now on HD#2 Acute Myeloblastic Leukemia Type II SC vs NSTEMI Elevated Troponin HAGMA Leukocytosis Thrombocytopenia Small B/L pulmonary emboli Recurrent UTIs/Acute UTI TIA Plan: 1) Acute myeloblastic leukemia, thrombocytopenia, leukocytosis - >70% blasts on peripheral smear -Heme/Onc following, appreciate recs -Will initiate transfer to [facility] for specialized treatment 2) B/L pulmonary emboli Elevated Troponins -Was started on eliquis, Heme/Onc advised half dose due to significant thrombocytopenia -PT/PTT elevated -O2 sats 92% on RA, no respiratory difficulty at this time -No Right heart strain/failure sx; Echo with 60-65% EF, pulm a. pressures 35-40 mmHg no Rt heart dysfunction, mild LV diastolic dysfunction. -Elevated troponin - likely type II SC -Cardiology following, appreciate recs 3) HAGMA likely 2/2 acute UTI -GAP of 15, CO2 20 -Urine culture growing Gram neg rods (3/2) >100,000 cfu -On rocephin q24hr through 07/04; denies dysuria/frequency/foul odor -Continuing methenamine hippurate 4) TIA, limb ataxia/dysmetria Likely 2/2 to paraneoplastic process of AML vs VTE -No focal hemorrhage on imaging -Symptoms have resolved; no focal findings on neurological assessment -Pt had been on ASA, will continue 325mg daily. YAJAIRA CASANOVA DO 07/02/22 0452: Supervisory-Addendum Brief Verification & Attestation Participated in pt care: history, MDM, physical Personally performed: exam, history, MDM, supervision of care Care discussed with: Medical Student Procedures: n/a Results interpretation: Verified all documentation Verification and Attestation of Medical Student E/M Service A medical student performed and documented this service in my presence. I reviewed and verified all information documented by the medical student and made modifications to such information, when appropriate. I personally performed the physical exam and medical decision making. Yajaira Casanova, Jul 02, 2022,04:51 JOHAN SEARS Jul 01, 2022 10:10 YAJAIRA CASANOVA DO Jul 02, 2022 04:52
[2022-07-01 12:00] VITALS: BP 148/82
[2022-07-01] MEDS ORDERED: CEFD300C3 PO (12:25)
--- NOTE | 2022-07-01 12:27 | Discharge Summary ---
Discharge Summary Hospital Course Was the Problem List Reviewed?: Yes Problems/Dx: (1) AML (acute myeloblastic leukemia) (2) TIA (transient ischemic attack) Status: Acute Hospital Course Date of Admission: Jun 29, 2022 at 20:12 Admission Diagnosis : Family Physician/Provider: Aman Stubbs MD Date of Discharge: 07/01/22 Discharge Diagnosis: [ ] Hospital Course: CC: Limb incoordination HPI: Patient seen at bedside this AM. She is sitting up having breakfast in her recliner. She is anxious to leave the hospital and feels that she is better and her symptoms have resolved. She is peeing a lot and having BMs. She says she feels weak when walking in her room but feels it's because she isn't able to rest well when in the hospital. Her is with her this AM at bedside. Hospital Course: This is an 82 y/o female with a PMH of recurrent UTIs treated by [facility], DMII, HLD, and HTN who presented on 06/29/22 for incoordination of her right hand and coinciding left arm pain. The patient reported that she was unable to grasp glasses/utensils in her kitchen and would bump into them when trying to grab them which caused them to be knocked off counters/tables and to break and she couldn't correct/control this. She noted that at the end of last week she began to feel unwell with vague constitutional symptoms to the point that she spent most of her time lying around in bed. Upon presentation a CT w/o contrast ruled out an acute hemorrhagic stroke. She was also found to have thrombocytopenia, leukocytosis, and a repeat UTI with a HAGMA. The patient also complained of some chest pain and had elevated troponins but EKG negative for STEMI. Imaging showed small pulmonary emboli and cardiology was consulted to follow her for NSTEMI vs Type II NC. 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 Heme/Onc reported these findings to the patient on 07/01/22 and recommended transfer to [facility] for further management of AML to which she was accepted and scheduled to leave the same day. SurgHx: Tonsillectomy D and C Cataract surgery Allergies: NKDA Objective: Vital Signs Date Time Temp Pulse Resp B/P (MAP) Pulse Ox O2 Delivery O2 Flow Rate FiO2 07/01/22 08:00 96 Room Air 07/01/22 07:56 37.1 77 18 142/81 (101) 96 Room Air 07/01/22 07:00 74 07/01/22 04:00 74 21 133/117 (122) 92 Room Air 07/01/22 01:00 73 07/01/22 00:34 97 Room Air 07/01/22 00:00 73 22 142/93 (109) 93 Room Air 06/30/22 23:39 36.3 06/30/22 20:30 Room Air 06/30/22 20:00 84 24 161/78 (105) 93 Room Air 06/30/22 19:35 36.7 81 21 141/83 (102) 94 Nasal Cannula 06/30/22 19:00 81 06/30/22 15:42 36.6 75 23 159/82 (107) Nasal Cannula 06/30/22 14:00 96 Room Air 06/30/22 13:25 92 06/30/22 12:00 36.8 85 14 153/89 (110) 95 Room Air I & O 07/01/22 07:00 Intake Total 600 ml Output Total 0 ml Balance 600 ml Laboratory Tests 06/29/22 15:35: White Blood Count 24.1H, Red Cell Distribution Width 14.9H, Platelet Count 62L, Neutrophils (%) (Auto) 5L, Lymphocytes (%) (Auto) 48H, Monocytes (%) (Auto) 44H, Neutrophils # (Auto) 1.3L, Lymphocytes # (Auto) 11.6H, Monocytes # (Auto) 10.7H, Immature Granulocyte # (Auto) 0.5H, D-Dimer > 20.00H, Potassium Level 3.4L, Anion Gap 16H, Blood Urea Nitrogen 24H, Glucose Level 152H, Troponin I 0.72*H 06/29/22 15:36: Glucometer 140H 06/29/22 15:50: 06/29/22 16:00: 06/29/22 17:05: Urine Specific [place] 1.010L, Urine Protein 1+H, Urine Nitrite POSITIVEH, Urine Leukocyte Esterase TRACEH, Urine RBC (Auto) 1+H, Urine Bacteria MODERATEH 06/29/22 17:55: Troponin I 1.04*H 06/30/22 01:50: Troponin I 1.696*H 06/30/22 04:46: White Blood Count 21.3H, Red Cell Distribution Width 14.9H, Platelet Count 58L, Neutrophils (%) (Auto) 8L, Monocytes (%) (Auto) 58H, Lymphocytes # (Auto) 6.6H, Monocytes # (Auto) 12.4H, Immature Granulocyte # (Auto) 0.4H, Prothrombin Time 15.9H, Activated Partial Thromboplast Time 36H, Potassium Level 3.1L, Chloride Level 108H, Carbon Dioxide Level 20L, Glucose Level 128H 06/30/22 21:51: Glucometer 164H 07/01/22 05:36: White Blood Count 25.9H, Red Cell Distribution Width 14.8H, Platelet Count 50L, Potassium Level 3.5L, Carbon Dioxide Level 20L, Anion Gap 15H, Glucose Level 156H Physical Exam: General: Well-appearing, no acute distress, alert and oriented x3 CV: Normal S1/S2, Regular rate/rhythm Lungs: Lungs CTAB, good air movement and chest rise GI: Bowel sounds active, soft/nontender Extremities: Peripheral pulses 2+/4, no edema Neuro: CN II-XII intact Upper extremities: bilateral 5/5 strength on extension/flexion and shoulder shrug -Sensation is intact and equal bilaterally to crude/fine touch -Negative for dysdiadokinesis -Finger tip to nose testing reveals no dysmetria Lower extremities: Bilateral 5/5 strength on extension/flexion of hips/knees. Sensation intact/equal bilaterally to crude/fine touch Mental: Good spirits, appropriate affect Assessment: This is a 82 y/o female who presented to the ED for limb incoordination, limb pain, and general malaise now on HD#2 Acute Myeloblastic Leukemia Type II NC vs NSTEMI Elevated Troponin HAGMA Leukocytosis Thrombocytopenia Small B/L pulmonary emboli Recurrent UTIs/Acute UTI TIA Plan: 1) Acute myeloblastic leukemia, thrombocytopenia, leukocytosis - >70% blasts on peripheral smear -Heme/Onc following, appreciate recs -Will initiate transfer to [facility] for specialized treatment 2) B/L pulmonary emboli Elevated Troponins -Was started on eliquis, Heme/Onc advised half dose due to significant thrombocytopenia -PT/PTT elevated -O2 sats 92% on RA, no respiratory difficulty at this time -No Right heart strain/failure sx; Echo with 60-65% EF, pulm a. pressures 35-40 mmHg no Rt heart dysfunction, mild LV diastolic dysfunction. -Elevated troponin - likely type II NC -Cardiology following, appreciate recs 3) HAGMA likely 2/2 acute UTI -GAP of 15, CO2 20 -Urine culture growing Gram neg rods (07/01) >100,000 cfu -On rocephin q24hr through 07/04; denies dysuria/frequency/foul odor -Continuing methenamine hippurate 4) TIA, limb ataxia/dysmetria Likely 2/2 to paraneoplastic process of AML vs VTE -No focal hemorrhage on imaging -Symptoms have resolved; no focal findings on neurological assessment -Pt had been on ASA, will continue 325mg daily. Labs and Pending Lab Test: Laboratory Tests 06/30/22 21:51: Glucometer 164H 07/01/22 05:36: White Blood Count 25.9H, Red Blood Count 4.39, Hemoglobin 12.7, Hematocrit 37, Mean Corpuscular Volume 84, Mean Corpuscular Hemoglobin 29, Mean Corpuscular Hemoglobin Concent 34, Red Cell Distribution Width 14.8H, Platelet Count 50L, Mean Platelet Volume 10.1, Sodium Level 140, Potassium Level 3.5L, Chloride Level 105, Carbon Dioxide Level 20L, Anion Gap 15H, Blood Urea Nitrogen 12, Creatinine 0.79, Estimat Glomerular Filtration Rate 76, BUN/Creatinine Ratio 15, Glucose Level 156H, Uric Acid 7.8H, Calcium Level 8.7 07/01/22 10:53: Glucometer 192H Microbiology 06/29/22 Urine Culture - Preliminary, Resulted Gram Negative Teddy Home Meds Active Reported Minoxidil 2.5 Mg Tablet 2.5 Mg PO DAILY Trandolapril 4 Mg Tablet 4 Mg PO DAILY LAST FILLED 02-15-2022 # DAY SUPPLY Atorvastatin Calcium 20 Mg Tablet 10 Mg PO HS TAKES OF A 20MG TAB LAST FILLED 03-01-2022 # DAY SUPPLY Fenofibrate (Fenofibrate Nanocrystallized) 145 Mg Tablet 145 Mg PO DAILY LAST FILLED 02-15-2022 # DAY SUPPLY Vitamin D3 (Cholecalciferol (Vitamin D3)) 125 Mcg (5000 Unit) Capsule 125 Mcg PO DAILY Aspirin EC (Aspirin) 81 Mg Tablet.dr 81 Mg PO HS Cranberry (Cranberry Extract) 250 Mg Capsule 250 Mg PO DAILY Carvedilol 6.25 Mg Tablet 6.25 Mg PO BID Verapamil Sr (Verapamil HCl) 240 Mg Cap24h.pel 240 Mg PO DAILY Methenamine Hippurate 1 Gram Tablet 1 Gm PO BID Metformin HCl ER (Metformin HCl) 750 Mg Tab.er.24h 750 Mg PO BID WITH MEALS Dutasteride 0.5 Mg Capsule 0.5 Mg PO DAILY Assessment/Pt Instructions ku Discharge Planning: <30 minutes discharge planning Discharge Physical Examination Vital Signs Vital Signs Date Time Temp Pulse Resp B/P (MAP) Pulse Ox O2 Delivery O2 Flow Rate FiO2 07/01/22 12:00 36.6 76 16 148/82 (104) 96 Room Air 06/29/22 21:19 21 General Appearance: No Apparent Distress, WD/WN, Chronically ill Allergies: Coded Allergies: No Known Drug Allergies (Unverified , 06/29/22) Discharge Summary Date of Admission Jun 29, 2022 at 20:12 Date of Discharge Discharge Date: Jul 01, 2022 MELVIN CASANOVA DO Jul 01, 2022 12:27
== END 2022-07-01 16:40 | disposition critical access hospital (66) ==
LOC: EDUNIT# 15:23 → ER FS 15:28 → CSD 20:12
PROVIDERS: ADMIT Family Medicine; ATTEND Internal Medicine
DX: C92.00 Acute myeloblastic leukemia, not having achieved remission (principal); D69.6 Thrombocytopenia, unspecified; N39.0 Urinary tract infection, site not specified; I26.99 Other pulmonary embolism without acute cor pulmonale; E87.29 Other acidosis; G45.9 Transient cerebral ischemic attack, unspecified; E04.2 Nontoxic multinodular goiter; G47.33 Obstructive sleep apnea (adult) (pediatric); I10 Essential (primary) hypertension; E78.5 Hyperlipidemia, unspecified; E11.9 Type 2 diabetes mellitus without complications; E87.5 Hyperkalemia; R77.8 Other specified abnormalities of plasma proteins; Z79.899 Other long term (current) drug therapy
CPT/HCPCS: 36415; 70450; 70496; 70498; 71045; 71275; 80048 ×2; 80053; 81000; 82947 ×3; 83605; 83735; 84484 ×2; 84550; 85007 ×2; 85025; 85027 ×2; 85045; 85055; 85379; 85610 ×2; 85730 ×2; 87077; 87088; 87186; 87636; 93005 ×3; 93970; 94760 ×3; 96372 ×2; 96374; 96375; 96376; 99284; C8929; G0378; 93306; Q9967